=== PATIENT | male | born 1970 | race Caucasian/White ===

== ENCOUNTER 2017-08-31 06:35 | Observation (INO) | payer SELFPAY ==
[2017-08-31] VITALS (14 sets, daily range): BP systolic 126–215; BP diastolic 70–112; PULSE 52–71; RESP 15–20; TEMP 97.3–98.1; O2SAT 96–100
[~2017-08-31] VITALS: Ht 188 cm; Wt 98.5 kg
--- NOTE | 2017-08-31 07:01 | PD ---
HPI Chief Complaint: Hypertension Time Seen by Provider: 06:56 Travel History International Travel<30 days: No Contact w/Intl Traveler<30days: No Traveled to known affect area: No History of Present Illness HPI 47-year-old male complains of chest pressure starting about 4:30 AM, approximately 3 hours prior to ER arrival. He walked his dog is reported. He reports blood pressure home was approximately 190/120. He has a history of high blood pressure and took metoprolol for some time however stopped about 10 years ago. He has no family history coronary artery disease. He does not smoke. No history diabetes. He reports possible history of high cholesterol. Patient reports a very busy week working 12 hour days outdoors. He is also training and martial arts at night. He reports recovering from a cold last week.Pain is of moderate severity. Timing constant. No radiation. Location is midsternal in right upper chest wall. PFSH Past Medical History Hx Anticoagulant Therapy: No Autoimmune Disease: No Anxiety: Yes Depression: Yes Cancer: No Cardiovascular Problems: Yes Diminished Hearing: No Endocrine: No Gastrointestinal Disorders: Yes GERD: No Genitourinary: No Hiatal Hernia: No Hypertension: Yes Immune Disorder: No Implanted Vascular Access Dvce: No Musculoskeletal: No Neurologic: No Reproductive: No Respiratory: No Ulcer: No Tetanus Vaccination: > 5 Years Past Surgical History Surgical History: No Previous Surgery Other Surgery: No Social History Alcohol Use: Yes (6 every other day per patient ) Tobacco Use: No Substance Use: Yes (marijuana) Allergies-Medications (Allergen,Severity, Reaction): Coded Allergies: No Known Allergies (Verified , 10/25/15) Reported Meds & Prescriptions Reported Meds & Active Scripts Active No Active Prescriptions or Reported Medications Review of Systems Except as stated in HPI: all other systems reviewed are Neg General / Constitutional: No: Fever Physical Exam Narrative GENERAL: 47-year-old male pleasant well-nourished well-developed no acute distress Vital Signs Date Time Temp Pulse Resp B/P (MAP) Pulse Ox O2 Delivery O2 Flow Rate FiO2 08/31/17 07:36 58 18 158/85 (109) 99 Room Air 08/31/17 07:05 71 18 174/104 (127) 100 Room Air 08/31/17 07:03 100 Room Air 08/31/17 07:03 100 Room Air 08/31/17 06:50 58 20 184/105 (131) 100 Room Air 08/31/17 06:47 Room Air 08/31/17 06:40 97.3 55 16 215/112 (146) 100 SKIN: Warm and dry. HEAD: Atraumatic. Normocephalic. EYES: Pupils equal and round. No scleral icterus. No injection or drainage. ENT: No nasal bleeding or discharge. Mucous membranes pink and moist. NECK: Trachea midline. No JVD. CARDIOVASCULAR: Regular rate and rhythm. RESPIRATORY: No accessory muscle use. Clear to auscultation. Breath sounds equal bilaterally. GASTROINTESTINAL: Abdomen soft, non-tender, nondistended. Hepatic and splenic margins not palpable. MUSCULOSKELETAL: Extremities without clubbing, cyanosis, or edema. No obvious deformities. NEUROLOGICAL: Awake and alert. No obvious cranial nerve deficits. Motor grossly within normal limits. Five out of 5 muscle strength in the arms and legs. Normal speech. PSYCHIATRIC: Appropriate mood and affect; insight and judgment normal. Data Data Last Documented VS Vital Signs Date Time Temp Pulse Resp B/P (MAP) Pulse Ox O2 Delivery O2 Flow Rate FiO2 08/31/17 07:36 58 18 158/85 (109) 99 Room Air 08/31/17 06:40 97.3 Orders Orders Electrocardiogram (08/31/17 ) Complete Blood Count With Diff (08/31/17 06:50) Basic Metabolic Panel (Bmp) (08/31/17 06:50) Ckmb (Isoenzyme) Profile (08/31/17 06:50) Troponin I (08/31/17 06:50) Chest, Single Ap (08/31/17 06:50) Iv Access Insert/Monitor (08/31/17 06:50) Ecg Monitoring (08/31/17 06:50) Oxygen Administration (08/31/17 06:50) Oximetry (08/31/17 06:50) Nitroglycerin Sl (Nitrostat Sl) (08/31/17 07:15) CKMB (08/31/17 07:14) CKMB% (08/31/17 07:14) Admit Order (Ed Use Only) (08/31/17 ) Geothermal Electrical Engineer / Telemetry ANNE.Q8H (08/31/17 08:48) Vital Signs (Adult) Q4H (08/31/17 08:48) Diet Npo (08/31/17 Breakfast) Activity Bed Rest (08/31/17 08:48) Ns (Bolus) Inj (08/31/17 09:00) Labs Laboratory Tests Test 08/31/17 07:14 White Blood Count 6.4 TH/MM3 Red Blood Count 5.07 MIL/MM3 Hemoglobin 13.8 GM/DL Hematocrit 42.7 % Mean Corpuscular Volume 84.1 FL Mean Corpuscular Hemoglobin 27.1 PG Mean Corpuscular Hemoglobin Concent 32.2 % Red Cell Distribution Width 13.6 % Platelet Count 276 TH/MM3 Mean Platelet Volume 8.4 FL Neutrophils (%) (Auto) 69.1 % Lymphocytes (%) (Auto) 22.4 % Monocytes (%) (Auto) 6.0 % Eosinophils (%) (Auto) 2.0 % Basophils (%) (Auto) 0.5 % Neutrophils # (Auto) 4.5 TH/MM3 Lymphocytes # (Auto) 1.4 TH/MM3 Monocytes # (Auto) 0.4 TH/MM3 Eosinophils # (Auto) 0.1 TH/MM3 Basophils # (Auto) 0.0 TH/MM3 CBC Comment DIFF FINAL Differential Comment Blood Urea Nitrogen 11 MG/DL Creatinine 0.98 MG/DL Random Glucose 202 MG/DL Calcium Level 7.7 MG/DL Sodium Level 134 MEQ/L Potassium Level 3.7 MEQ/L Chloride Level 102 MEQ/L Carbon Dioxide Level 23.8 MEQ/L Anion Gap 8 MEQ/L Estimat Glomerular Filtration Rate 82 ML/MIN Total Creatine Kinase 442 U/L Creatine Kinase MB 6.5 NG/ML Creatine Kinase MB % 1.5 % Troponin I LESS THAN 0.02 NG/ML MDM Medical Decision Making Medical Screen Exam Complete: Yes Emergency Medical Condition: Yes Medical Record Reviewed: Yes Differential Diagnosis NSTEMI, unstable angina, coronary vasospasm, PE, PTX, aortic dissection, pericarditis, myocarditis, endocarditis, PNA, esophageal disease, aneurysm, musculoskeletal etiologies, anxiety, cocaine/sympathomimetic abuse Narrative Course CBC & BMP Diagram 08/31/17 07:14 Calcium Level 7.7 L Troponins less than 0.02 The patient has sinus bradycardia with a rate of 55 no skin injury pattern A chest x-ray reviewed is concerning for possible consolidation at the right lung base which is not keeping with expectations for today's visit. Overall the patient is considered next FOR the low-risk chest pain center. He was somewhat reluctant initially however agrees to stay. Case discussed with Dr Tam. Diagnosis Primary Impression: Chest pain Qualified Codes: R07.9 - Chest pain, unspecified Additional Impressions: Hypertension Qualified Codes: I10 - Essential (primary) hypertension Hyperglycemia Admitting Information Admitting Physician Requests: Observation Scripts No Active Prescriptions or Reported Meds Jeramy Castro MD August 31, 2017 07:01
--- NOTE | 2017-08-31 07:02 | RADRPT ---
EXAM DATE/TIME: 08/31/2017 06:51 [facility] COMPARISON: CHEST PA & LAT, October 25, 2015, 5:58. INDICATIONS : Chest pain MEDICAL HISTORY : None. SURGICAL HISTORY : None. ENCOUNTER: Initial ACUITY: 1 day PAIN SCORE: 1/10 LOCATION: Bilateral chest FINDINGS: There is minimal linear parenchymal opacity in the right lung base. Left lung is grossly clear. No ef fusion suspected. Cardiac contours are stable and satisfactory. CONCLUSION: Minimal right base parenchymal opacity. Vernon Dempsey MD on August 31, 2017 at 6:59 Board Certified Radiologist. This report was verified electronically.
[2017-08-31 07:19] LABS: AUTOMATED NEUTROPHIL # 4.5 TH/MM3 (1.8-7.7); BASOPHIL % 0.5 % (0.0-2.0); EOSINOPHIL # 0.1 TH/MM3 (0-0.4); HEMATOCRIT 42.7 % (39.0-51.0); HEMOGLOBIN 13.8 GM/DL (13.0-17.0); LYMPH % 22.4 % (9.0-44.0); LYMPHOCYTE # 1.4 TH/MM3 (1.0-4.8); MEAN CELL VOLUME 84.1 FL (80.0-100.0); MEAN CORPUSCULAR HEMOGLOBIN 27.1 PG (27.0-34.0); MEAN CORPUSCULAR HGB CONC 32.2 % (32.0-36.0); MEAN PLATELET VOLUME 8.4 FL (7.0-11.0); MONOCYTE # 0.4 TH/MM3 (0-0.9); NEUT % 69.1 % (16.0-70.0); PLATELET COUNT 276 TH/MM3 (150-450); RED BLOOD COUNT 5.07 MIL/MM3 (4.50-5.90); RED CELL DISTRIBUTION WIDTH 13.6 % (11.6-17.2); WHITE BLOOD COUNT 6.4 TH/MM3 (4.0-11.0)
[2017-08-31] MEDS: NITROGLYCERIN 0.4 MG SL 25 TABS/BTL SL SCH ×2 (07:20→07:25)
[2017-08-31 07:29] LABS: CHLORIDE 102 MEQ/L (98-107); SODIUM (NA) 134 MEQ/L (136-145)
[2017-08-31 07:32] LABS: BICARBONATE 23.8 MEQ/L (21.0-32.0); BLOOD UREA NITROGEN 11 MG/DL (7-18); CALCIUM 7.7 MG/DL (8.5-10.1); GLUCOSE,RANDOM 202 MG/DL (74-106)
[2017-08-31 07:35] LABS: CREATININE 0.98 MG/DL (0.60-1.30); GLOMERULAR FILTRATION RATE 82 ML/MIN (>89)
[2017-08-31 07:40] LABS: TROPONIN I LESS THAN 0.02 NG/ML (0.02-0.05)
[2017-08-31] MEDS ORDERED: SODIUM CHLOR 0.9% 1000 ML INJ 1,000 ML IV ONE ×2 (09:00→11:15)
[2017-08-31] MEDS ORDERED: NITROGLYCERIN 0.4 MG SL 25 TABS/BTL SL PRN (09:45)
[2017-08-31] MEDS ORDERED: ACETAMINOPHEN 500 MG CPLT PO PRN (09:45)
[2017-08-31] MEDS ORDERED: SODIUM CHLORIDE 0.9% FLUSH 10 ML FLUSH IV FLUSH PRN (09:45)
[2017-08-31] MEDS ORDERED: ONDANSETRON HCL 4 MG/2 ML VIAL IV PUSH PRN (09:45)
--- NOTE | 2017-08-31 09:47 | HHI.HP ---
HPI Service [facility] Primary Care Physician No Primary Care Physician Admission Diagnosis Chest Pain; Elevated Blood Glucose Diagnoses: (1) Chest pain (2) Hypertension (3) Hyperglycemia (4) Rhabdomyolysis Chief Complaint: Chest pressure Travel History International Travel<30 Days: No Contact w/Intl Traveler <30 Da: No Traveled to Known Affected Are: No History of Present Illness This is a pleasant 47-year-old male patient with a known medical history of hypertension, not on any blood pressure meds at home who presented to the ED via private vehicle for complaints of atypical chest pressure/neck pressure. Patient states that around 4:30 in the morning he was walking his dog when he developed a neck tightness. He went home, checked his blood pressure and it was roughly around 187/119. Patient does admit to a history of hypertension, was placed on Toprol in the past however stopped it roughly 10 years ago with lost to follow-up. Patient denies any associated nausea, vomiting, diaphoresis or shortness of breath with the pressure. He does admit to increasing stress in his life for the past several weeks, does admit to a extraneous work life. It should be noted that patient also had a 14 day bout of cough and congestion that ended last week, leaving his chest occasionally sore. Patient states he just has not been feeling himself lately. Denies any fevers, chills, abdominal pain, nausea, vomiting or dysuria. Does admit to occasional diarrhea. Denies any recent antibiotic use. Does not follow with the primary care doctor, patient is from [place]. Also states he is unaware of any hyperlipidemia. Patient is found to have an elevated CPK, states he was drinking last evening for the holiday and feels dehydrated. Initial troponin less than 0.02, second troponin 0 0.62. Will await third enzyme. All chest pressure and tightness has resolved. Dr. Mendoza spoke to on the phone, hospital housekeeper on-call, who is requesting to wait for third enzyme. EKGs showing normal sinus rhythm, controlled heart rate, nonspecific ST changes. Will continue to monitor. Review of Systems Constitutional: DENIES: Fever, Chills Eyes: DENIES: Blurred vision, Diplopia Respiratory: COMPLAINS OF: Cough, Sputum production, DENIES: Shortness of breath Cardiovascular: COMPLAINS OF: Chest pain, DENIES: Palpitations Gastrointestinal: COMPLAINS OF: Diarrhea, DENIES: Abdominal pain, Black stools , Bloody stools, Constipation, Nausea, Vomiting Musculoskeletal: DENIES: Joint pain Hematologic/lymphatic: DENIES: Bruising Immunologic/allergic: DENIES: Eczema Neurologic: DENIES: Abnormal gait Psychiatric: DENIES: Anxiety Except as stated in HPI: all other systems reviewed are Neg Past Family Social History Past Medical History Hypertension Anxiety and depression Past Surgical History Denies any prior surgery. Reported Medications Current Medications Medications (Trade) Dose Ordered Sig/Jaison Route Start Time Stop Time Status Last Admin (NS Flush) 2 ml UNSCH PRN IV FLUSH 08/31/17 09:45 (NS Flush) 2 ml BID IV FLUSH 08/31/17 21:00 (Tylenol) 500 mg Q4H PRN PO 08/31/17 09:45 (Zofran Inj) 4 mg Q6H PRN IV PUSH 08/31/17 09:45 (Nitrostat Sl) 0.4 mg Q5M PRN SL 08/31/17 09:45 Sodium Chloride 1,000 ml @ 100 mls/hr Q10H IV 08/31/17 11:15 Sodium Chloride 1,000 ml @ 999 mls/hr BOLUS ONCE IV 08/31/17 11:15 08/31/17 12:15 Allergies: Coded Allergies: No Known Allergies (Verified , 10/25/15) Active Ordered Medications Current Medications Medications (Trade) Dose Ordered Sig/Jaison Route Start Time Stop Time Status Last Admin (NS Flush) 2 ml UNSCH PRN IV FLUSH 08/31/17 09:45 (NS Flush) 2 ml BID IV FLUSH 08/31/17 21:00 (Tylenol) 500 mg Q4H PRN PO 08/31/17 09:45 (Zofran Inj) 4 mg Q6H PRN IV PUSH 08/31/17 09:45 (Nitrostat Sl) 0.4 mg Q5M PRN SL 08/31/17 09:45 Sodium Chloride 1,000 ml @ 100 mls/hr Q10H IV 08/31/17 11:15 Sodium Chloride 1,000 ml @ 999 mls/hr BOLUS ONCE IV 08/31/17 11:15 08/31/17 12:15 Family History Denies any family medical historyl Social History Denies any tobacco abuse. Denies any illicit drug use. Admits to drinking alcohol every other day. Physical Exam Vital Signs Vital Signs Date Time Temp Pulse Resp B/P (MAP) Pulse Ox O2 Delivery O2 Flow Rate FiO2 08/31/17 09:40 08/31/17 08:40 58 18 149/95 (113) 98 Room Air 08/31/17 07:36 58 18 158/85 (109) 99 Room Air 08/31/17 07:05 71 18 174/104 (127) 100 Room Air 08/31/17 07:03 100 Room Air 08/31/17 07:03 100 Room Air 08/31/17 06:50 58 20 184/105 (131) 100 Room Air 08/31/17 06:47 Room Air 08/31/17 06:40 97.3 55 16 215/112 (146) 100 Physical Exam GENERAL: Well-developed, well-nourished patient in [facility]. SKIN: Warm and dry. No rash. HEAD: Normocephalic. Atraumatic. EYES: Pupils equal and round. No scleral icterus. No injection or drainage. ENT: No nasal bleeding or discharge. Mucous membranes pink and moist. NECK: Supple. Trachea midline. CARDIOVASCULAR: Regular rate and rhythm. S1, S2 noted. No murmur appreciated. No chest pain to palpation RESPIRATORY: No accessory muscle use. Clear to auscultation. Breath sounds equal bilaterally. GASTROINTESTINAL: Abdomen soft, non-tender, nondistended. Normoactive bowel sounds x4. MUSCULOSKELETAL: No obvious deformities. Extremities without clubbing, cyanosis , or edema. NEUROLOGICAL: Awake and alert. No obvious cranial nerve deficits. Motor grossly within normal limits. 5/5 muscle strength in bilateral upper and lower extremities. Normal speech. PSYCHIATRIC: Appropriate mood and affect; insight and judgment normal. Laboratory Laboratory Tests Test 08/31/17 07:14 White Blood Count 6.4 Red Blood Count 5.07 Hemoglobin 13.8 Hematocrit 42.7 Mean Corpuscular Volume 84.1 Mean Corpuscular Hemoglobin 27.1 Mean Corpuscular Hemoglobin Concent 32.2 Red Cell Distribution Width 13.6 Platelet Count 276 Mean Platelet Volume 8.4 Neutrophils (%) (Auto) 69.1 Lymphocytes (%) (Auto) 22.4 Monocytes (%) (Auto) 6.0 Eosinophils (%) (Auto) 2.0 Basophils (%) (Auto) 0.5 Neutrophils # (Auto) 4.5 Lymphocytes # (Auto) 1.4 Monocytes # (Auto) 0.4 Eosinophils # (Auto) 0.1 Basophils # (Auto) 0.0 CBC Comment DIFF FINAL Differential Comment Blood Urea Nitrogen 11 Creatinine 0.98 Random Glucose 202 Calcium Level 7.7 Sodium Level 134 Potassium Level 3.7 Chloride Level 102 Carbon Dioxide Level 23.8 Anion Gap 8 Estimat Glomerular Filtration Rate 82 Total Creatine Kinase 442 Creatine Kinase MB 6.5 Creatine Kinase MB % 1.5 Troponin I LESS THAN 0.02 Result Diagram: 08/31/17 0714 08/31/17 0714 Imaging Last Impressions Chest X-Ray 08/31/17 0650 Signed Impressions: Service Date/Time: Thursday, August 31, 2017 06:51 - CONCLUSION: Minimal right base parenchymal opacity. Vernon Dempsey MD Septic Shock Reassessment Septic shock perfusion: reassessment completed Caprini VTE Risk Assessment Caprini VTE Risk Assessment: No/Low Risk (score <= 1) Caprini Risk Assessment Model Point Value = 1 Point Value = 2 Point Value = 3 Point Value = 5 Age 41-60 Minor surgery BMI > 25 kg/m2 Swollen legs Varicose veins or History of unexplained or recurrent spontaneous Oral contraceptives or hormone replacement Sepsis (< 1 month) Serious lung disease, including pneumonia (< 1 month) Abnormal pulmonary function Acute myocardial infarction Congestive heart failure (< 1 month) History of inflammatory bowel disease Medical patient at bed rest Age 61-74 Arthroscopic surgery Major open surgery (> 45 min) Laparoscopic surgery (> 45 min) Malignancy Confined to bed (> 72 hours) Immobilizing plaster cast Central venous access Age >= 75 History of VTE Family history of VTE Factor V Leiden Prothrombin [id number] Lupus anticoagulant Anticardiolipin antibodies Elevated serum homocysteine Heparin-induced thrombocytopenia Other congenital or acquired thrombophilia Stroke (< 1 month) Elective arthroplasty Hip, pelvis, or leg fracture Acute spinal cord injury (< 1 month) Prophylaxis Regimen Total Risk Factor Score Risk Level Prophylaxis Regimen 0-1 Low Early ambulation 2 Moderate Order ONE of the following: *Sequential Compression Device (SCD) *Heparin 5000 units SQ BID 3-4 Higher Order ONE of the following medications: *Heparin 5000 units SQ TID *Enoxaparin/Lovenox 40 mg SQ daily (WT < 150 kg, CrCl > 30 mL/min) *Enoxaparin/Lovenox 30 mg SQ daily (WT < 150 kg, CrCl > 10-29 mL/min) *Enoxaparin/Lovenox 30 mg SQ BID (WT < 150 kg, CrCl > 30 mL/min) AND/OR *Sequential Compression Device (SCD) 5 or more Highest Order ONE of the following medications: *Heparin 5000 units SQ TID (Preferred with Epidurals) *Enoxaparin/Lovenox 40 mg SQ daily (WT < 150 kg, CrCl > 30 mL/min) *Enoxaparin/Lovenox 30 mg SQ daily (WT < 150 kg, CrCl > 10-29 mL/min) *Enoxaparin/Lovenox 30 mg SQ BID (WT < 150 kg, CrCl > 30 mL/min) AND *Sequential Compression Device (SCD) Assessment and Plan Problem List: (1) Chest pain ICD Code: R07.9 - Chest pain, unspecified Status: Acute Plan: Patient has been admitted to the chest pain center for observation. Serial EKGs and serial troponins have been ordered for ruling out ACS purposes. Initial troponin flat. Second troponin bumped to 0.62. Await third enzyme. Spoke to Dr. Mendoza, hospital housekeeper on-call, who was updated about patient's presentation will await third enzyme. EKG reviewed showing sinus bradycardia, controlled heart rate, no ST changes to indicate ischemia. Nonspecific ST changes seen. Chest pain has resolved. CBC reviewed essentially unremarkable. Blood pressure has improved. Further hospitalization and treatment plan will depend on serial enzymes. Continue to monitor. (2) Hypertension ICD Code: I10 - Essential (primary) hypertension Status: Acute Plan: Significantly elevated BP on presentation. 215/112, now decreased. Not on any medications at home. Trend BPs. Lisinopril added. Patient is bradycardic , will hold betablocker for now. Aspirin given. Nitroglycerin as needed. Continue to monitor. service developer hospital housekeeper called and updated, will await third enzyme. Chest pain has resolved. (3) Rhabdomyolysis ICD Code: M62.82 - Rhabdomyolysis Status: Acute Plan: CPK elevated 442/CKMB 6.5. Trend. Was given 1 L NS bolus in ED. Will add another liter. Start IVF. Renal function WNL. (4) Hyperglycemia ICD Code: R73.9 - Hyperglycemia, unspecified Status: Acute Plan: Random glucose 202. No history of DM. Hemoglobin a1C pending. Follow. (5) Respiratory infection, upper ICD Code: J06.9 - Acute upper respiratory infection, unspecified Plan: Patient admits to a 14 day productive cough and congestion, chest x-ray showing minimal right lower lobe parenchymal opacity. Z-Driss ordered. DVT prophylaxis: SCDs. Problem Qualifiers (1) Chest pain: Qualified Codes: R07.9 - Chest pain, unspecified (2) Hypertension: Qualified Codes: I10 - Essential (primary) hypertension Lakia Hale August 31, 2017 09:47
[2017-08-31 11:09] LABS: TROPONIN I 0.62 NG/ML (0.02-0.05)
[2017-08-31] MEDS: SODIUM CHLOR 0.9% 1000 ML INJ 1,000 ML IV SCH ×2 (11:32→21:22)
[2017-08-31] MEDS: LISINOPRIL 10 MG TAB PO SCH (11:51)
[2017-08-31] MEDS: ASPIRIN 325 MG TAB PO SCH (11:51)
[2017-08-31] MEDS ORDERED: AZITHROMYCIN 250 MG TAB PO ONE (12:00)
[2017-08-31 13:46] LABS: HEMOGLOBIN A1C 5.6 % (4.3-6.0)
[2017-08-31 13:48] LABS: CHOLESTEROL 254 MG/DL (120-200)
[2017-08-31 13:50] LABS: HDL CHOLESTEROL 55.2 MG/DL (40.0-60.0); LDL CHOLESTEROL 159 MG/DL (0-99); TRIGLYCERIDES 197 MG/DL (42-150)
[2017-08-31 14:23] LABS: TROPONIN I 1.58 NG/ML (0.02-0.05)
[2017-08-31] MEDS ORDERED: HEPARIN-D5W 25,000 U/250 ML 250 ML IV PRN (14:30)
[2017-08-31 15:02] LABS: PROTHROMBIN TIME - PATIENT 9.7 SEC (9.8-11.6)
[2017-08-31 15:12] LABS: BILIRUBIN, URINE NEG (NEG); BLOOD, URINE NEG (NEG); GLUCOSE,URINE NEG (NEG); KETONE, URINE NEG (NEG); NITRITE,URINE NEG (NEG); PH, URINE 5.5 (5.0-8.5); URINE LEUKOCYTE ESTERASE NEG (NEG)
[2017-08-31 15:35] LABS: URINE COLOR STRAW (YELLW/STRAW)
[2017-08-31 15:36] LABS: SQUAMOUS EPITHELIAL CELL URINE 0-1 /hpf (0-5)
--- NOTE | 2017-08-31 16:18 | MB ---
cc: David Brown MD DATE: 08/31/2017 REASON FOR CONSULTATION: Elevated troponin. HISTORY OF PRESENT ILLNESS: This is a pleasant 47-year-old gentleman with history of hypertension but no known coronary history, who presented with the sensation of having high blood pressure. He has had this sensation in the past, which he describes as neck pressure and fullness. He asked his girlfriend to take his blood pressure and apparently it was very elevated, over 180. He was seen in the emergency department where his initial blood pressure was 215/112. This has since come down reasonably. His cardiac enzymes became positive and thus I was consulted. The patient denies any current chest pain, though he says he recently had a severe flu and he had some pleuritic discomfort at that time. 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 Additionally, he says he is quite active in martial arts and has not had any exertional chest discomfort. PAST MEDICAL HISTORY: Hypertension, cannabis "vaping", prior tobacco abuse, anxiety and depression. CURRENT MEDICATIONS: 1. Zithromax. 2. IV heparin. 3. Aspirin 325 mg a day. 4. Lisinopril 10 mg daily. ALLERGIES: NO KNOWN DRUG ALLERGIES. PHYSICAL EXAMINATION: VITAL SIGNS: Afebrile, pulse 52, respiratory rate 16, blood pressure 156/88, satting 96 on 2 liters. GENERAL: Pleasant gentleman in no distress. NECK: No JVD. LUNGS: Clear to auscultation bilaterally. HEART: Regular rate and rhythm. No murmurs appreciated. ABDOMEN: Benign. EXTREMITIES: No edema. LABORATORY DATA: White count 6.4, hematocrit 42.7, platelets 276. Sodium 134, potassium 3.7, chloride 102, bicarbonate 23.8, BUN 11, creatinine 0.9 and glucose 202. Troponin was less than 0.02, 0.62, 1.58. CK and CK-MBs are positive though CK-MB percentage is normal. Toxicology was positive for cannabis. DIAGNOSTIC STUDIES: Chest x-ray showed minimal parenchymal opacity at the right base. EKG shows sinus bradycardia with no significant ST or T-wave changes. IMPRESSION AND RECOMMENDATIONS: Elevated troponin. The patient's elevated troponin is most likely due to his severe hypertension. His symptoms are pretty atypical for acute coronary syndrome, particularly given his very strenuous job and extracurricular activities which result in no chest discomfort symptoms. However, acute coronary syndrome obviously cannot be totally excluded and given the somewhat higher troponin than we usually see and hypertension alone, I did offer a cardiac catheterization. He declined this procedure now and wishes for an alternative noninvasive study to be done instead. I have elected for a coronary CT which will be done tomorrow. If this test is positive, the patient will reconsider whether or not he would like to undergo a heart catheterization. Further recommendations based on his coronary CT. Thank you again for the opportunity to participate in this patient's care. MD FRANDY James/HILARY , 03:59 PM , 04:18 PM
[2017-08-31] MEDS: SODIUM CHLORIDE 0.9% FLUSH 10 ML FLUSH IV FLUSH SCH (21:00)
[2017-09-01 02:04] VITALS: BP 136/88; PULSE 52; RESP 20; TEMP 98; O2SAT 97
[2017-09-01] MEDS: SODIUM CHLOR 0.9% 1000 ML INJ 1,000 ML IV SCH (07:42)
[2017-09-01 08:00] VITALS: BP 136/86; PULSE 54; RESP 16; TEMP 98.7; O2SAT 100
[2017-09-01] MEDS: SODIUM CHLORIDE 0.9% FLUSH 10 ML FLUSH IV FLUSH SCH (08:54)
[2017-09-01] MEDS: ASPIRIN 325 MG TAB PO SCH (09:00)
[2017-09-01] MEDS ORDERED: AZITHROMYCIN 250 MG TAB PO SCH (09:00)
--- NOTE | 2017-09-01 09:51 | HHI.PR ---
Subjective Remarks Follow up chest pain and elevated troponin. Patient seen and examined, girlfriend at bedside. No acute events overnight. No complaints of chest pain. BP more controlled. Trops elevated. Barrel Cap Setter following, plan for [facility] Patient will be transferred. On Heparin drip, continue. Vitals are stable. Afebrile. Objective Vitals Vital Signs Date Time Temp Pulse Resp B/P (MAP) Pulse Ox O2 Delivery O2 Flow Rate FiO2 09/01/17 08:00 98.7 54 16 136/86 (103) 100 09/01/17 02:04 98.0 52 20 136/88 (104) 97 08/31/17 23:00 53 08/31/17 22:00 99 21 08/31/17 21:38 98.1 54 20 126/74 (91) 98 08/31/17 16:00 98.0 57 16 133/70 (91) 97 08/31/17 15:00 56 08/31/17 12:56 96 21 08/31/17 12:00 97.7 52 16 156/88 (110) 99 I/O 08/31/17 08/31/17 08/31/17 09/01/17 09/01/17 09/01/17 07:00 15:00 23:00 07:00 15:00 23:00 Intake Total 500 ml 720 ml Balance 500 ml 720 ml Intake Oral 720 ml IV Total 500 ml # Voids 3 1 # Bowel Movements 2 Result Diagram: 08/31/17 0714 08/31/17 0714 Imaging Last Impressions Chest X-Ray 08/31/17 0650 Signed Impressions: Service Date/Time: Thursday, August 31, 2017 06:51 - CONCLUSION: Minimal right base parenchymal opacity. Vernon Dempsey MD Objective Remarks GENERAL: Well-developed, well-nourished patient in NAD. No cp. On RA comfortably. SKIN: Warm and dry. No rash. HEAD: Normocephalic. Atraumatic. EYES: Pupils equal and round. No scleral icterus. No injection or drainage. ENT: No nasal bleeding or discharge. Mucous membranes pink and moist. NECK: Supple. Trachea midline. CARDIOVASCULAR: Regular rate and rhythm. S1, S2 noted. No murmur appreciated. No chest pain to palpation. RESPIRATORY: No accessory muscle use. Clear to auscultation. Breath sounds equal bilaterally. GASTROINTESTINAL: Abdomen soft, non-tender, nondistended. Normoactive bowel sounds x4. MUSCULOSKELETAL: No obvious deformities. Extremities without clubbing, cyanosis , or edema. NEUROLOGICAL: Awake and alert. No obvious cranial nerve deficits. Motor grossly within normal limits. 5/5 muscle strength in bilateral upper and lower extremities. Normal speech. PSYCHIATRIC: Appropriate mood and affect; insight and judgment normal. A/P Problem List: (1) Chest pain ICD Code: R07.9 - Chest pain, unspecified Status: Acute Plan: Patient has been admitted to the chest pain center for observation. Serial EKGs and serial troponins have been ordered for ruling out ACS purposes. Troponin elevated. Spoke to Dr. Mendoza, division engineer on-call, is following patient. Recommendations for cardiac cath but patient is refusing. CT angiogram is ordered for today. [facility]. Heparin gtt continued. EKG reviewed showing sinus bradycardia, controlled heart rate, no ST changes to indicate ischemia. Nonspecific ST changes seen. Chest pain has resolved. CBC reviewed essentially unremarkable. Blood pressure has improved. Lipids elevated, started on Atorvastatin. Further hospitalization and treatment plan will depend on CT angiogram results. Continue to monitor. (2) Hypertension ICD Code: I10 - Essential (primary) hypertension Status: Acute Plan: Significantly elevated BP on presentation. 215/112, now WNL. Not on any medications at home. Trend BPs. Lisinopril added. Patient is bradycardic, will hold beta-hector for now. Aspirin given. Nitroglycerin as needed. Continue to monitor BP trends. (3) Rhabdomyolysis ICD Code: M62.82 - Rhabdomyolysis Status: Acute Plan: CPK elevated 442/CKMB 6.5 on presentation. Continue to trend, trending down. Was given 1 L NS bolus in ED. Added an additional liter. Continue IVF. Renal function WNL. Continue to monitor. (4) Hyperglycemia ICD Code: R73.9 - Hyperglycemia, unspecified Status: Acute Plan: Random glucose 202. No history of DM. Hemoglobin a1C 5.6. (5) Respiratory infection, upper ICD Code: J06.9 - Acute upper respiratory infection, unspecified Plan: Patient admits to a 14 day productive cough and congestion, chest x-ray showing minimal right lower lobe parenchymal opacity. Z-Driss ordered. Will monitor, comfortable on RA. DVT prophylaxis: SCDs. Problem Qualifiers (1) Chest pain: Qualified Codes: R07.9 - Chest pain, unspecified (2) Hypertension: Qualified Codes: I10 - Essential (primary) hypertension Lakia Hale September 01, 2017 09:50
[2017-09-01] MEDS: LISINOPRIL 10 MG TAB PO SCH (09:54)
[2017-09-01 10:15] VITALS: O2SAT 97
[2017-09-01 12:50] VITALS: BP 135/79; PULSE 50; RESP 16; TEMP 97.3; O2SAT 100
[2017-09-01] MEDS ORDERED: ATOR40TA16 PO (15:30)
[2017-09-01] MEDS ORDERED: LISI10TA3 PO (15:30)
--- NOTE | 2017-09-01 16:15 | EKG ---
Date Performed: 08/31/2017 Time Performed: 07:02:10 PTAGE: 47 years EKG: SINUS BRADYCARDIA BORDERLINE ECG PREVIOUS TRACING : 10/25/2015 05.28 Since previous tracing, no significant change noted DOCTOR: Sebastian Glover Interpretating Date/Time 09/01/2017 16:13:32
--- NOTE | 2017-09-01 16:15 | EKG ---
Date Performed: 08/31/2017 Time Performed: 10:19:37 PTAGE: 47 years EKG: SINUS BRADYCARDIA BORDERLINE ECG PREVIOUS TRACING : 08/31/2017 07.02 Since previous tracing, no significant change noted DOCTOR: Sebastian Glover Interpretating Date/Time 09/01/2017 16:13:43
--- NOTE | 2017-09-01 16:16 | EKG ---
Date Performed: 08/31/2017 Time Performed: 13:27:13 PTAGE: 47 years EKG: SINUS BRADYCARDIA BORDERLINE ECG PREVIOUS TRACING : 08/31/2017 10.19 Since previous tracing, no significant change noted DOCTOR: Sebastian Glover Interpretating Date/Time 09/01/2017 16:14:41
[2017-09-01] MEDS ORDERED: ATORVASTATIN 40 MG TAB PO SCH (21:00)
== END 2017-09-01 15:34 | disposition left against medical advice (07) ==
LOC: PHED 06:35 → PHEDA 08:49 → PH3A 09:36
PROVIDERS: ADMIT Hospitalist; ATTEND Hospitalist
DX: R07.9 Chest pain, unspecified (principal); I10 Essential (primary) hypertension; M62.82 Rhabdomyolysis; J06.9 Acute upper respiratory infection, unspecified; E86.0 Dehydration; R73.9 Hyperglycemia, unspecified; R94.31 Abnormal electrocardiogram [ECG] [EKG]; Z87.891 Personal history of nicotine dependence
CPT/HCPCS: 71045; 80048; 80061; 80307; 81001; 82550; 82552; 83036; 84484; 85025; 85610; 85730; 93005; 96361; 96365; 99285; G0378; J1644; J7030

== ENCOUNTER 2017-09-12 18:59 | Emergency (ER) | END 2017-09-12 22:15 | disposition home or self-care (01) | DX: I10 Essential (primary) hypertension (principal); F12.90 Cannabis use, unspecified, uncomplicated; Z91.14 Patient's other noncompliance with medication regimen ==

== ENCOUNTER 2017-09-17 23:03 | Inpatient (IN) | payer SELFPAY ==
[~2017-09-17] VITALS: Ht 188 cm; Wt 95.0 kg
[~2017-09-17 23:03] MED LIST: ATOR40TA16 PO; LISI10TA3 PO; OMEP20TA93 PO
[2017-09-17 23:13] VITALS: BP 178/105; PULSE 69; RESP 16; TEMP 97.9; O2SAT 100
--- NOTE | 2017-09-17 23:17 | PD ---
HPI Chief Complaint: Chest Pain Time Seen by Provider: 23:17 Travel History International Travel<30 days: No Contact w/Intl Traveler<30days: No Traveled to known affect area: No History of Present Illness HPI 47-year-old male came to the emergency with history of substernal chest pressure that started this evening. No radiation of the pain. No aggravating or relieving factors identified. Patient says that he was admitted in this hospital about 2 weeks ago for similar complaint and was planned to be transferred to the main hospital but he left AMA since he had to get to work. Patient has history of high blood pressure and at home today noticed that his blood pressure was high. He took one extra dose of his lisinopril but when the pain did not get better he decided to come to the emergency room. Patient is a smoker. He has not had any cardiac workup or any telephone collector. PFSH Past Medical History Narrative Medical List of his past medical, surgical, social and family history reviewed from the nursing note. Hx Anticoagulant Therapy: No Autoimmune Disease: No Anxiety: Yes Depression: Yes Cancer: No Cardiovascular Problems: Yes (HTN) Diminished Hearing: No Endocrine: No Gastrointestinal Disorders: Yes GERD: No Genitourinary: No Hiatal Hernia: No Hypertension: Yes Immune Disorder: No Implanted Vascular Access Dvce: No Musculoskeletal: No Neurologic: No Reproductive: No Respiratory: No Ulcer: No Past Surgical History Other Surgery: No Social History Alcohol Use: Yes (6 every other day per patient ) Tobacco Use: No Substance Use: Yes (Marijuana) Allergies-Medications (Allergen,Severity, Reaction): Coded Allergies: No Known Allergies (Verified , 10/25/15) Comments No known drug allergies. Reported Meds & Prescriptions Reported Meds & Active Scripts Active Reported Omeprazole 20 Mg Tab 20 Mg PO DAILY Narrative Medication List of his home medications reviewed from the nursing note. Review of Systems Except as stated in HPI: all other systems reviewed are Neg Cardiovascular: Positive: Chest Pain or Discomfort Physical Exam Narrative GENERAL: Awake, alert, anxious, moderate distress SKIN: Focused skin assessment warm/dry. HEAD: Atraumatic. Normocephalic. EYES: Pupils equal and round. No scleral icterus. No injection or drainage. ENT: No nasal bleeding or discharge. Mucous membranes pink and moist. NECK: Trachea midline. No JVD. CARDIOVASCULAR: Regular rate and rhythm. No murmur appreciated. RESPIRATORY: No accessory muscle use. Clear to auscultation. Breath sounds equal bilaterally. GASTROINTESTINAL: Abdomen soft, non-tender, nondistended. Hepatic and splenic margins not palpable. MUSCULOSKELETAL: No obvious deformities. No clubbing. No cyanosis. No edema. NEUROLOGICAL: Awake and alert. No obvious cranial nerve deficits. Motor grossly within normal limits. Normal speech. PSYCHIATRIC: Appropriate mood and affect; insight and judgment normal. Data Data Last Documented VS Vital Signs Date Time Temp Pulse Resp B/P (MAP) Pulse Ox O2 Delivery O2 Flow Rate FiO2 09/17/17 23:56 65 16 136/87 (103) 98 Nasal Cannula 2.00 09/17/17 23:13 97.9 Orders Orders Electrocardiogram (09/17/17 23:15) Complete Blood Count With Diff (09/17/17 23:15) Basic Metabolic Panel (Bmp) (09/17/17 23:15) Ckmb (Isoenzyme) Profile (09/17/17 23:15) Troponin I (09/17/17 23:15) Chest, Single Ap (09/17/17 23:15) Aspirin Chew (Aspirin Chew) (09/18/17 09:00) Nitroglycerin Sl (Nitrostat Sl) (09/17/17 23:30) Aspirin Chew (Aspirin Chew) (09/17/17 23:31) CKMB (09/17/17 23:15) CKMB% (09/17/17 23:15) Potassium Chloride Eff (K-Lyte Cl Eff) (09/18/17 00:00) Admit Order (Ed Use Only) (09/18/17 00:00) Place In Observation (09/17/17 ) Vital Signs (Adult) Q4H (09/17/17 23:58) Spar Machine Operator / Telemetry .CONTINUOUS (09/17/17 23:58) Sodium Chloride 0.9% Flush (Ns Flush) (09/18/17 00:00) Sodium Chloride 0.9% Flush (Ns Flush) (09/18/17 09:00) Acetaminophen (Tylenol) (09/18/17 00:00) Troponin I (09/18/17 05:58) Electrocardiogram (09/17/17 23:58) Electrocardiogram (09/18/17 05:58) Resp Oxygen Elpidio C Titrat 1-4 L (09/17/17 ) Scd Bilateral/Knee High ANNE.BID (09/17/17 23:58) Naloxone Inj (Narcan Inj) (09/18/17 00:00) Magnesium Hydroxide Liq (Milk Of Magnesi (09/18/17 00:00) Sennosides (Senokot) (09/18/17 00:00) Bisacodyl Supp (Dulcolax Supp) (09/18/17 00:00) Lactulose Liq (Lactulose Liq) (09/18/17 00:00) Labs Laboratory Tests Test 09/17/17 23:15 White Blood Count 10.9 TH/MM3 Red Blood Count 5.06 MIL/MM3 Hemoglobin 13.8 GM/DL Hematocrit 42.5 % Mean Corpuscular Volume 84.0 FL Mean Corpuscular Hemoglobin 27.2 PG Mean Corpuscular Hemoglobin Concent 32.4 % Red Cell Distribution Width 13.3 % Platelet Count 292 TH/MM3 Mean Platelet Volume 8.3 FL Neutrophils (%) (Auto) 60.6 % Lymphocytes (%) (Auto) 30.0 % Monocytes (%) (Auto) 5.9 % Eosinophils (%) (Auto) 1.5 % Basophils (%) (Auto) 2.0 % Neutrophils # (Auto) 6.6 TH/MM3 Lymphocytes # (Auto) 3.3 TH/MM3 Monocytes # (Auto) 0.6 TH/MM3 Eosinophils # (Auto) 0.2 TH/MM3 Basophils # (Auto) 0.2 TH/MM3 CBC Comment DIFF FINAL Differential Comment Blood Urea Nitrogen 14 MG/DL Creatinine 1.00 MG/DL Random Glucose 113 MG/DL Calcium Level 8.2 MG/DL Sodium Level 133 MEQ/L Potassium Level 3.2 MEQ/L Chloride Level 99 MEQ/L Carbon Dioxide Level 24.1 MEQ/L Anion Gap 10 MEQ/L Estimat Glomerular Filtration Rate 80 ML/MIN Total Creatine Kinase 265 U/L Creatine Kinase MB 4.1 NG/ML Troponin I LESS THAN 0.02 NG/ML MDM Medical Decision Making Medical Screen Exam Complete: Yes Emergency Medical Condition: Yes Medical Record Reviewed: Yes Interpretation(s) Twelve-lead EKG was reviewed by me. Normal sinus rhythm, normal axis, nonspecific ST-T wave changes. Heart rate of 64 bpm. Differential Diagnosis ACS, non-STEMI Narrative Course 11:59 PM blood test results are back. Troponin is negative. I spoke with the hospitalist. He wants to keep the patient in [place] for now and trend the troponin. If it starts to rise then patient will be transferred to the main hospital. His potassium was low. He was given potassium orally for replacement. Procedures EKG Prior to Arrival: No Diagnosis Primary Impression: Chest pain Qualified Codes: R07.9 - Chest pain, unspecified Additional Impression: Hypertension Qualified Codes: I10 - Essential (primary) hypertension Admitting Information Admitting Physician Requests: Observation Scripts Ranitidine (Zantac) 150 Mg Tab 150 MG PO BID for Reduce Stomach Acid, #60 TAB 0 Refills Prov: Elana Lopez MD 09/19/17 Clopidogrel (Plavix) 75 Mg Tab 75 MG PO DAILY for Blood Clot Prevention for 90 Days, #90 TAB 0 Refills Prov: Elana Lopez MD 09/19/17 Aspirin (Tgt Aspirin) 81 Mg Chw 162 MG PO DAILY for CAD for 30 Days, EA 11 Refills Prov: Elana Lopez MD 09/19/17 Lisinopril (Lisinopril) 5 Mg Tab 2.5 MG PO DAILY for CAD for 30 Days, #15 TAB Prov: Elana Lopez MD 09/19/17 Metoprolol Tartrate (Metoprolol Tartrate) 25 Mg Tab 12.5 MG PO Q12HR for CAD for 30 Days, TAB 3 Refills Prov: Elana Lopez MD 09/19/17 Atorvastatin (Atorvastatin) 80 Mg Tab 80 MG PO HS for CAD for 30 Days, TAB 6 Refills Prov: Elana Lopez MD 09/19/17 Krissy Ramos MD September 17, 2017 23:17
[2017-09-17 23:23] VITALS: BP 173/97
[2017-09-17] MEDS ORDERED: NITROGLYCERIN 0.4 MG SL 25 TABS/BTL SL ONE (23:30)
[2017-09-17] MEDS ORDERED: ASPIRIN 81 MG CHEW TAB ONE (23:31)
[2017-09-17] MEDS: ASPIRIN 81 MG CHEW TAB CHEW SCH (23:34)
[2017-09-17 23:39] VITALS: BP 148/89; PULSE 81; RESP 16; O2SAT 98
[2017-09-17 23:39] LABS: CHLORIDE 99 MEQ/L (98-107); SODIUM (NA) 133 MEQ/L (136-145)
[2017-09-17 23:41] LABS: CALCIUM 8.2 MG/DL (8.5-10.1)
[2017-09-17 23:42] LABS: AUTOMATED NEUTROPHIL # 6.6 TH/MM3 (1.8-7.7); BASOPHIL # 0.2 TH/MM3 (0-0.2); BICARBONATE 24.1 MEQ/L (21.0-32.0); BLOOD UREA NITROGEN 14 MG/DL (7-18); EOSINOPHIL # 0.2 TH/MM3 (0-0.4); EOSINOPHIL % 1.5 % (0.0-4.0); GLUCOSE,RANDOM 113 MG/DL (74-106); HEMATOCRIT 42.5 % (39.0-51.0); HEMOGLOBIN 13.8 GM/DL (13.0-17.0); LYMPHOCYTE # 3.3 TH/MM3 (1.0-4.8); MEAN CORPUSCULAR HEMOGLOBIN 27.2 PG (27.0-34.0); MEAN CORPUSCULAR HGB CONC 32.4 % (32.0-36.0); MEAN PLATELET VOLUME 8.3 FL (7.0-11.0); MONO % 5.9 % (0.0-8.0); MONOCYTE # 0.6 TH/MM3 (0-0.9); NEUT % 60.6 % (16.0-70.0); PLATELET COUNT 292 TH/MM3 (150-450); RED BLOOD COUNT 5.06 MIL/MM3 (4.50-5.90); RED CELL DISTRIBUTION WIDTH 13.3 % (11.6-17.2); WHITE BLOOD COUNT 10.9 TH/MM3 (4.0-11.0)
[2017-09-17 23:45] LABS: GLOMERULAR FILTRATION RATE 80 ML/MIN (>89)
--- NOTE | 2017-09-17 23:49 | RADRPT ---
EXAM DATE: 09/17/2017 11:45 PM EDT AGE/SEX: 47 years / Male INDICATIONS: Bilateral chest pain starting today CLINICAL DATA: This is the patient's initial encounter. Patient reports that signs and symptoms have been present for 1 day and indicates a pain score of 4/10. MEDICAL/SURGICAL HISTORY: Hypertension. None. COMPARISON: [facility], CHEST SINGLE AP, 08/31/2017. . FINDINGS: A single AP view of the chest demonstrates the lungs to be symmetrically aerated without evidence of mass, infiltrate or effusion. The cardiomediastinal contours are unremarkable. Osseous structures a re intact. CONCLUSION: No acute cardiopulmonary disease. Electronically signed by: Jorge Gutierrez MD 09/17/2017 11:47 PM EDT
[2017-09-17 23:50] LABS: TROPONIN I LESS THAN 0.02 NG/ML (0.02-0.05)
[2017-09-17 23:56] VITALS: BP 136/87; PULSE 65; RESP 16; O2SAT 98
[2017-09-18] VITALS (16 sets, daily range): BP systolic 124–142; BP diastolic 67–89; PULSE 50–68; RESP 14–20; TEMP 96.8–98.1; O2SAT 95–99
[2017-09-18] MEDS ORDERED: ACETAMINOPHEN 325 MG TAB PO PRN
[2017-09-18] MEDS ORDERED: LACTULOSE SYRUP 20 GM/30 ML CUP PO PRN
[2017-09-18] MEDS ORDERED: NALOXONE HCL 0.4 MG/ML AMP IV PUSH PRN
[2017-09-18] MEDS ORDERED: POTASSIUM CHLORIDE 25 MEQ EFFERVESCENT TAB PO ONE
[2017-09-18] MEDS ORDERED: SENNOSIDES 8.6 MG TAB PO PRN
[2017-09-18] MEDS ORDERED: BISACODYL 10 MG SUPP RECTAL PRN
[2017-09-18] MEDS ORDERED: MAGNESIUM HYDROXIDE SUSP 30 ML CUP PO PRN
--- NOTE | 2017-09-18 07:46 | HHI.HP ---
[facility] No Primary Care Physician Admission Diagnosis Chest pain, rule out ACS Diagnoses: (1) Non-ST elevated myocardial infarction Diagnosis: Principal (2) Chest pain Diagnosis: Principal Chief Complaint: Chest pain Travel History International Travel<30 Days: No Contact w/Intl Traveler <30 Da: No Traveled to Known Affected Are: No History of Present Illness 47-year-old male with known history of hypertension, hyperlipidemia, gastroesophageal reflux who presented to the hospital because of chest discomfort. Patient states that he was in her normal state of health until 10 PM last night when he started developing a pain/burning in his mid sternum region without any radiation to neck, back, shoulder, arm. He denied any nausea , vomiting, diaphoresis, shortness of breath, dyspnea, lightheadedness, dizziness. Patient states that the pain was a 5/10 on a pain scale and lasted for approximately 10-15 minutes at a time and would ease up on its own. Patient came to emergency department was given aspirin and nitroglycerin with complete resolution of his pain. Patient was just here in the hospital on August at that time he also appeared to have a non-ST elevated myocardial infarction. He was evaluated by on-call residential worker Dr. Mendoza. Patient is deferring any intervention at that time and was planning to have coronary angiogram performed, however he left AGAINST MEDICAL ADVICE because he had to go to work in order to pay bills. Patient states that he was doing well without any complications. He did go to emergency department on 09/12/17 because he is having some discomfort at that time. Patient had workup done and was discharged home. Patient was evaluated in emergency department this time and started to have cardiac workup done with troponin and EKGs. Patient had acute elevation of troponin to 2.85 with development of Q waves in inferior leads. I notified patient of the new findings and non-ST elevated myocardial infarction. Patient is in agreement with procedure at this time. Review of Systems Cardiovascular: COMPLAINS OF: Chest pain Except as stated in HPI: all other systems reviewed are Neg Past Family Social History Past Medical History Hypertension Hyper lipidemia Gastroesophageal reflux Past Surgical History Tonsillectomy Reported Medications Last Impressions Chest X-Ray 09/17/17 0325 Signed Impressions: CONCLUSION: No acute cardiopulmonary disease. Allergies: Coded Allergies: No Known Allergies (Verified , 10/25/15) Family History Family history reviewed and patient does not know much about his family history. Social History Patient used to smoke but he quit long time ago, he does drink alcohol approximately 2-3 times weekly. Does smoke marijuana occasionally Physical Exam Vital Signs Vital Signs Date Time Temp Pulse Resp B/P (MAP) Pulse Ox O2 Delivery O2 Flow Rate FiO2 09/18/17 06:00 97 21 09/18/17 04:14 97.4 60 20 131/67 (88) 97 09/18/17 02:24 96.9 60 20 131/67 (88) 97 09/18/17 01:55 09/18/17 01:47 68 128/75 (92) 09/18/17 00:51 63 16 135/81 (99) 98 Nasal Cannula 2.00 09/17/17 23:56 65 16 136/87 (103) 98 Nasal Cannula 2.00 09/17/17 23:46 Nasal Cannula 2.00 09/17/17 23:39 81 16 148/89 (108) 98 Room Air 09/17/17 23:23 173/97 (122) 09/17/17 23:13 97.9 69 16 178/105 (129) 100 09/17/17 23:13 62 Room Air Physical Exam GENERAL: Well-developed, well-nourished, in no acute distress. alert and orientated HEENT: Head is normocephalic without any lesions or masses noted. Facial features are symmetric. Eyes: Pupils equal round reactive to light. Extraocular muscles are intact. Conjunctivae were clear. Oropharyngeal: Pharynx without any erythema edema. Tongue is midline without deviation. Buccal mucosa is moist without any masses or lesions NECK: Supple without any masses. Trachea midline no deviation. No JVD, no bruits are appreciated CARDIAC: Regular rhythm, regular rate. S1/S2 are heard. No murmurs gallops or rubs. LUNGS: Clear to auscultation bilaterally. No wheeze, rhonchi or rales. No use of accessory muscles on inspiration or expiration. ABDOMEN: Soft, nontender. Nondistended. Bowel sounds heard in all 4 quadrants. No organomegaly or masses. Negative rebound, negative guarding EXTREMITIES: No edema, pulses are equal bilaterally. No cyanosis or clubbing NEUROLOGY: Mood and affect appear appropriate. Cranial nerves II through XII grossly intact. Muscle strength 5/5 in upper and lower extremities bilaterally. Deep tendon reflexes are 2+ in upper and lower extremities bilaterally. Laboratory Laboratory Tests Test 09/17/17 23:15 09/18/17 05:15 White Blood Count 10.9 Red Blood Count 5.06 Hemoglobin 13.8 Hematocrit 42.5 Mean Corpuscular Volume 84.0 Mean Corpuscular Hemoglobin 27.2 Mean Corpuscular Hemoglobin Concent 32.4 Red Cell Distribution Width 13.3 Platelet Count 292 Mean Platelet Volume 8.3 Neutrophils (%) (Auto) 60.6 Lymphocytes (%) (Auto) 30.0 Monocytes (%) (Auto) 5.9 Eosinophils (%) (Auto) 1.5 Basophils (%) (Auto) 2.0 Neutrophils # (Auto) 6.6 Lymphocytes # (Auto) 3.3 Monocytes # (Auto) 0.6 Eosinophils # (Auto) 0.2 Basophils # (Auto) 0.2 CBC Comment DIFF FINAL Differential Comment Blood Urea Nitrogen 14 Creatinine 1.00 Random Glucose 113 Calcium Level 8.2 Sodium Level 133 Potassium Level 3.2 Chloride Level 99 Carbon Dioxide Level 24.1 Anion Gap 10 Estimat Glomerular Filtration Rate 80 Total Creatine Kinase 265 Creatine Kinase MB 4.1 Troponin I LESS THAN 0.02 2.85 Result Diagram: 09/17/17231409/17/172314 Imaging Last Impressions Chest X-Ray 09/17/172314 Signed Impressions: CONCLUSION: No acute cardiopulmonary disease. Caprini VTE Risk Assessment Caprini VTE Risk Assessment: No/Low Risk (score <= 1) Caprini Risk Assessment Model Point Value = 1 Point Value = 2 Point Value = 3 Point Value = 5 Age 41-60 Minor surgery BMI > 25 kg/m2 Swollen legs Varicose veins or History of unexplained or recurrent spontaneous Oral contraceptives or hormone replacement Sepsis (< 1 month) Serious lung disease, including pneumonia (< 1 month) Abnormal pulmonary function Acute myocardial infarction Congestive heart failure (< 1 month) History of inflammatory bowel disease Medical patient at bed rest Age 61-74 Arthroscopic surgery Major open surgery (> 45 min) Laparoscopic surgery (> 45 min) Malignancy Confined to bed (> 72 hours) Immobilizing plaster cast Central venous access Age >= 75 History of VTE Family history of VTE Factor V Leiden Prothrombin [id number] Lupus anticoagulant Anticardiolipin antibodies Elevated serum homocysteine Heparin-induced thrombocytopenia Other congenital or acquired thrombophilia Stroke (< 1 month) Elective arthroplasty Hip, pelvis, or leg fracture Acute spinal cord injury (< 1 month) Prophylaxis Regimen Total Risk Factor Score Risk Level Prophylaxis Regimen 0-1 Low Early ambulation 2 Moderate Order ONE of the following: *Sequential Compression Device (SCD) *Heparin 5000 units SQ BID 3-4 Higher Order ONE of the following medications: *Heparin 5000 units SQ TID *Enoxaparin/Lovenox 40 mg SQ daily (WT < 150 kg, CrCl > 30 mL/min) *Enoxaparin/Lovenox 30 mg SQ daily (WT < 150 kg, CrCl > 10-29 mL/min) *Enoxaparin/Lovenox 30 mg SQ BID (WT < 150 kg, CrCl > 30 mL/min) AND/OR *Sequential Compression Device (SCD) 5 or more Highest Order ONE of the following medications: *Heparin 5000 units SQ TID (Preferred with Epidurals) *Enoxaparin/Lovenox 40 mg SQ daily (WT < 150 kg, CrCl > 30 mL/min) *Enoxaparin/Lovenox 30 mg SQ daily (WT < 150 kg, CrCl > 10-29 mL/min) *Enoxaparin/Lovenox 30 mg SQ BID (WT < 150 kg, CrCl > 30 mL/min) AND *Sequential Compression Device (SCD) Assessment and Plan Assessment and Plan 47-year-old male who presents with typical chest discomfort with history of recent non-ST elevated myocardial infarction Non-ST elevated myocardial infarction -Patient with increased risk factors to include hypertension, hyperlipidemia, history of tobacco use -Patient with acutely elevated troponin of 2.85 -EKG as reviewed by myself is showing development of Q waves in inferior leads -Cardiology will be consulted and I discussed the case with Dr. Kilgore, urgent transfer to the main hospital for cardiac catheterization -Cardioprotection with aspirin, Lopressor, Nitropaste, atorvastatin -Continue telemetry -Heparin for anticoagulation will be initiated Hypertension -Patient usually takes lisinopril 10 mg at home, will hold that at this time due to his blood pressure and heart rate and patient needing more cardioprotection with other medications Hyperlipidemia -Recent lipid panel from 08/31/17 showed LDL 159 -Continue statin DVT prevention -Patient will be on heparin IV Physician Certification 2 Midnight Certification Type: Admission for Inpatient Services Order for Inpatient Services The services are ordered in accordance with Medicare regulations or non- Medicare payer requirements, as applicable. In the case of services not specified as inpatient-only, they are appropriately provided as inpatient services in accordance with the 2-midnight benchmark. Estimated LOS (days): 3 days is the estimated time the patient will need to remain in the hospital, assuming treatment plan goals are met and no additional complications. Post-Hospital Plan: Not yet determined Problem Qualifiers (1) Chest pain: Qualified Codes: R07.9 - Chest pain, unspecified Dejon Linton September 18, 2017 07:46
[2017-09-18] MEDS ORDERED: HEPARIN-D5W 25,000 U/250 ML 250 ML IV PRN (08:00)
[2017-09-18] MEDS ORDERED: HEPARIN SODIUM - IV 10,000 UNITS/10 ML VIAL IV ONE (08:00)
[2017-09-18] MEDS: METOPROLOL TARTRATE 25 MG TAB PO SCH ×2 (08:20→21:35)
[2017-09-18] MEDS: ASPIRIN 81 MG CHEW TAB CHEW SCH (08:21)
[2017-09-18] MEDS ORDERED: PILL SPLITTER OTHER PRN (08:30)
[2017-09-18] MEDS: NITROGLYCERIN 2% OINT 1 GM PACKET TOPICAL SCH ×3 (08:31→23:31)
[2017-09-18] MEDS ORDERED: SODIUM CHLORIDE 0.9% FLUSH 10 ML FLUSH IV FLUSH SCH (09:00)
[2017-09-18 09:08] LABS: HEMATOCRIT 44.7 % (39.0-51.0); HEMOGLOBIN 14.6 GM/DL (13.0-17.0); MEAN CELL VOLUME 83.2 FL (80.0-100.0); MEAN CORPUSCULAR HEMOGLOBIN 27.3 PG (27.0-34.0); MEAN CORPUSCULAR HGB CONC 32.7 % (32.0-36.0); MEAN PLATELET VOLUME 8.6 FL (7.0-11.0); PLATELET COUNT 288 TH/MM3 (150-450); RED BLOOD COUNT 5.37 MIL/MM3 (4.50-5.90); RED CELL DISTRIBUTION WIDTH 13.2 % (11.6-17.2); WHITE BLOOD COUNT 6.1 TH/MM3 (4.0-11.0)
[2017-09-18 09:13] LABS: PROTHROMBIN TIME - PATIENT 9.7 SEC (9.8-11.6)
[2017-09-18 10:45] LABS: TROPONIN I 3.02 NG/ML (0.02-0.05)
[2017-09-18] MEDS ORDERED: MIDAZOLAM HCL 2 MG/2 ML VIAL ONE ×2 (13:56→14:24)
[2017-09-18] MEDS ORDERED: HEPARIN SODIUM - IV 10,000 UNITS/10 ML VIAL IV PRN ×2 (14:00)
[2017-09-18] MEDS ORDERED: HEPARIN-NS/PF INJ 500 ML ONE (14:00)
[2017-09-18] MEDS ORDERED: HEPARIN SODIUM - IV 10,000 UNITS/10 ML VIAL ONE (14:29)
--- NOTE | 2017-09-18 14:36 | MB ---
cc: Angel Kilgore MD DATE: 09/18/2017 HISTORY OF PRESENT ILLNESS: This is a 47-year-old gentleman who was seen 2 weeks ago in the ER, admitted to the hospital, left AMA. He has a history of hypertension. He had an episode of moderate chest pain last night. Presents this morning with substernal chest pressure to [facility]. Currently, chest pain free. Otherwise, denies any fever, chills, cough, GI or bleeding, PND, orthopnea, syncope or dizziness. PAST MEDICAL HISTORY: Per illness of present illness. Has a history of hypertension. SOCIAL HISTORY: He does drink alcohol. He admits to smoking marijuana. Denies tobacco use. ALLERGIES: NONE. MEDICATIONS PRIOR TO ADMISSION: 1. Lisinopril 10 mg daily. 2. Atorvastatin 40 mg at bedtime. 3. Omeprazole 20 mg daily. MEDICATIONS IN THE HOSPITAL: 1. Atorvastatin 20 mg at bedtime. 2. IV heparin. 3. Aspirin 162 mg daily. 4. Metoprolol 12.5 q. 12 hours. 5. 0.5 mg of nitro paste. PHYSICAL EXAMINATION: VITAL SIGNS: Blood pressure 139/89, pulse 59, respiratory rate 14, temperature 96.8, sats 95% on room air. GENERAL: He is alert and oriented x3, in no acute distress. NECK: Supple. No JVD. No bruit. CARDIOVASCULAR: S1, S2. No murmurs, rubs, gallops. LUNGS: Clear to auscultation bilaterally. ABDOMEN: Soft, nontender, nondistended with positive bowel sounds. EXTREMITIES: No lower extremity edema. IMAGING: Chest x-ray shows no acute cardiopulmonary disease. LABORATORY DATA: EKG: Normal sinus rhythm at 64 beats per minute, asymmetric T-wave inversion in lead III and aVF. Repeat EKG: Sinus bradycardia at 59 beats per minute. Repolarization abnormality, otherwise normal. White count 6.1, hemoglobin 14.6, hematocrit 44.7, platelet count 288. INR 1.0, sodium 133, potassium 3.2, chloride 99, BUN 14, creatinine 1.0, glucose 113. Initial troponin was 0.02, second troponin is 2.85, third troponin is 3.02. CK is 305 with a MB 23.5. DIAGNOSES: 1. Biq-JX-quwajvkuz myocardial infarction. 2. Hyponatremia. 3. Hypokalemia. 4. History of noncompliance. DISCUSSION: At this point in time, the left heart catheterization is urgently indicated due to non-STEMI, multiple cardiac risk factors. Agree with aspirin and heparin. Further recommendations based on the details of his heart catheterization. Angel Kilgore MD AWC/TL , 02:16 PM , 02:35 PM
[2017-09-18] MEDS ORDERED: TIROFIBAN INFUSION INJ 250 ML IV ONE (14:55)
[2017-09-18] MEDS ORDERED: PRASUGREL 10 MG TAB ONE (14:55)
[2017-09-18] MEDS ORDERED: TIROFIBAN INFUSION INJ 250 ML IV SCH (15:08)
--- NOTE | 2017-09-18 15:12 | CATHPROC ---
[employer] HIS Report Study Information Study Number Admission Scheduled Start Study Start [id number] Sep 18 2017 7:43AM 09/18/2017 Sep 18 2017 1:49PM [facility] Cardiac Catheterization Admit Source Facility Department Other [facility] - Family Program Specialist Physician and Clinical Staff Initial Angel Pritchett Outsole Splicer Lobo Keenan,RN Recorder Anne Ramos ,RT(R) Scrub Aydee Proctor,RT(R) Procedures Performed Procedure Location (Site) Vessel Name Coronary Angiograms LCA Left Coronary Coronary Angiograms RCA Right Coronary L Heart Cath LV Gram-hand inj. LV LV Ventricle PTCA OM1 Mid CIRC Stent CIRC Prox CIRC Wire insertion Fem Art (right) Femoral Art Equipment Time Sensor Operator Description Size Mfg Part Number Used/Scraped [id number] 14:29 Momail CRITICAL CARE WIRE, ASAsellpoints PROWATER 180CM 180CM Used *[id number] TRANSDUCER, TRUWAVE [id number] 13:51 MAYFIELD RODRÍGUEZ * Used W/STOCKCOCK *[id number] 14:45 [place] [employer] WIRE, CHOICE PT 182CM 182CM Used *[id number] [id number] *[id number] [id number] *[id number] *[id number] 13:51 MEDLINE [employer] PACK, CCL CUSTOM * Used *[id number] 13:51 [employer] PACER PEN, SKIN DUAL W/ RULER * Used *[id number] 14:37 MEDTRONIC BALLOON, 2.0 X 10MM EUPHORA 10MM Used *[id number] 14:41 MEDTRONIC STENT, 2.5 8 INTEGRITY 2.5 8 Used *[id number] 14:39 Infinite Z MEDICAL 30 WHITNEY INDEFLATOR Used *[id number] 14:29 Infinite Z MEDICAL SHEATH, FR6.5 PRELUDE 11CM FR 6.5 038ACT Used *[id number] 13:51 Infinite Z MEDICAL WIRE, 3MMJ .035 180CM 180CM Used *[id number] 13:51 NAMIC MANIFOLD, 4 PORT * Used *[id number] 13:51 NYCOMED OMNIPAQUE, 350 MG, 150ML 150ML [id number] Used [id number] 13:51 GARCIAS MED[employer] BLANKET,WARM AIR CCL * Used *[id number] 13:51 TERUMO MEDICAL SHEATH, FR4 TERUMO (10CM) FR 4 Used *[id number] Equipment Model, Serial, Lot Number and Expiration Data Description Model Number Serial Number Lot Number Expiration Date STENT, 2.5 8 INTEGRITY [id number] 12-31-2017 WIRE, CHOICE PT 182CM [id number] 05-27-2019 History: Current Medications Medication Dosage/Unit Route Frequency Last Date/Time Taken ASA History: Allergies Allergy Reaction No Known Allergies History: Risk Factors Family History of Hypertension Dyslipidemia Previous UT Previous Heart Failure Premature CAD Yes Yes No No No Prior Valve Prior PCI Prior CABG Surgery No No No Cerebrovascular Peripheral Artery Chronic Lung On Dialysis Diabetes Disease Disease Disease No No No No No History: Stress Tests Stress or Imaging Studies Performed No History: Other Current Smoker Method Quit Packs a Day Years Used Pack Years No Cigarettes 18 Years Ago 1 8 8 Labs Hgb (g/dl) Hct (%) WBC (l/cumm) Platelets (thousands) 11.60-17.00 35.00-51.00 4.00-11.00 150.00-450.00 14.6 44.7 6.1 288 Glucose (mg/dl) BUN (mg/dl) Creatinine (mg/dl) BUN:Creatinine (1:x) 74.00-106.00 7.00-18.00 0.50-1.30 10.00-20.00 113 14 1.0 14 Na (meq/l) K (meq/l) 136.00-145.00 3.50-5.10 133 3.2 INR (PTT:PT) 0.90-1.10 1 Troponin I (ng/ml) CPK (u/l) CPK-MB (ng/ML) 0.02-0.05 26.00-308.00 0.50-3.60 3.02 265 4.1 Medication Medication Total Dose (Bolus/Oral) Medication Total Dosage/Unit 1% XYLOCAINE 20 mL ATROPINE 0.6 mg EFFIENT 60 mg FENTANYL 75 mcg HEPARIN 3500 units VERSED 3 mg Medications (Bolus/Oral) Medication Time Given Dosage/Unit Administered By Reason VERSED 09/18/2017 2:20:33 PM 2 mg Lobo Keenan 2 mg VERSED given in lab by Lobo Keenan RN in Right Antecubital via Peripheral IV. Ordered by Angel Mckeon. FENTANYL 09/18/2017 2:20:39 PM 25 mcg Lobo Keenan 25 mcg FENTANYL given in lab by Lobo Keenan RN in Right Antecubital via Peripheral IV. Ordered by Angel Kilgore. 1% XYLOCAINE 09/18/2017 2:21:07 PM 20 mL Angel Kilgore 20 mL 1% XYLOCAINE given in lab by Angel Kilgore in Right Groin via Subcutaneous. Ordered by Angel Steel. VERSED 09/18/2017 2:25:00 PM 1 mg Lobo Keenan 1 mg VERSED given in lab by Lobo Keenan RN in Right Antecubital via Peripheral IV. Ordered by Angel Mckeon. ATROPINE 09/18/2017 2:26:23 PM 0.6 mg Lobo Keenan 0.6 mg ATROPINE given in lab by Lobo Keenan RN via Peripheral IV. Ordered by Angel Kilgore. FENTANYL 09/18/2017 2:32:37 PM 25 mcg Lobo Keenan 25 mcg FENTANYL given in lab by Lobo Keenan RN in Right Antecubital via Peripheral IV. Ordered by Angel Kilgore. FENTANYL 09/18/2017 2:35:39 PM 25 mcg Lobo Keenan 25 mcg FENTANYL given in lab by Lobo Keenan RN in Right Antecubital via Peripheral IV. Ordered by Angel Kilgore. HEPARIN 09/18/2017 2:38:00 PM 2000 units Lobo Keenan 2000 units HEPARIN given in lab by Lobo Keenan RN via Peripheral IV. Ordered by Angel Kilgore. EFFIENT 09/18/2017 2:51:00 PM 60 mg Lobo Keenan 60 mg EFFIENT given in lab by Lobo Keenan RN in Right Antecubital via Oral. Ordered by Angel Kilgore. HEPARIN 09/18/2017 2:57:10 PM 1500 units Lobo Keenan 1500 units HEPARIN given in lab by Lobo Keenan RN via Peripheral IV. Ordered by Angel Kilgore. Medication (Drip) Medication Time Given Dosage/Unit Concentration/Unit Diluent (ml) Solution IV Solutions 09/18/2017 1:57:05 PM 50 mL (IV) NaCl .9 Patient arrived on IV Solutions in Right Antecubital via Peripheral IV. Pump/Drip Flow using NaCl .9. Initial Case Assessment Cardiovascular HR Rhythm NIBP Chest Pain 53 sr 147/93 0 Edema Present Skin color Skin None Normal Warm Dry Circulatory - Right Pulses Dorsalis Pedis Femoral 2 2 Scale (0,1,2,3,4,d) Circulatory - Left Pulses Dorsalis Pedis Femoral 2 2 Scale (0,1,2,3,4,d) Circulatory - Lower Extremities Color Lower Right Color Lower Left Normal Normal Neurological State Oriented to time-place- Alert Moves all extremities person Respiration - General Respiration Rate SpO2 (%) (B/min) 17 99 Final Case Assessment Cardiovascular HR Rhythm NIBP Chest Pain 53 sr 147/93 0 Edema Present Skin color Skin None Normal Warm Dry Circulatory - Right Pulses Dorsalis Pedis Femoral 2 2 Scale (0,1,2,3,4,d) Circulatory - Left Pulses Dorsalis Pedis Femoral 2 2 Scale (0,1,2,3,4,d) Circulatory - Lower Extremities Color Lower Right Color Lower Left Normal Normal Neurological State Oriented to time-place- Alert Moves all extremities person Respiration - General Respiration Rate SpO2 (%) (B/min) 17 99 Chronological Log Time Study Chronological Log 13:52:36 Patient arrived via Bed. 13:52:37 Patient Name, D.O.B, / Armband Verified By R.N. 13:56:12 Consent signed by the physician and the patient and verified by the Family Program Specialist staff. 13:56:14 Pre-op and post- op instructions given; patient acknowledges understanding of instructions. 13:56:39 Verbal Stimulation=2 Physical Stimulation=2 Airway=2 Respiration=2 TOTAL=8. (0=absent, 1=li mited, 2=present) 13:56:52 Patient has been NPO for More than 6Hrs. 13:56:53 Skin Breakdown- none per patient 13:57:04 A # 20 IV was noted in the Antecubital (right). Grade = 0 13:57:05 Patient arrived on IV Solutions in Right Antecubital via Peripheral IV. Pump/Drip Flow usin g NaCl .9. 13:58:41 History and physical on the chart or being dictated. Assessment: Initial Case, HR=53 BPM, Rhythm=sr, EAVS=340/93 mmhg, Chest Pain=0, Edema=None, Col or=Normal, Skin = Warm, Dry Right Pulses: Jarek Ped=2, Femoral=2 Left Pulses: Jarek Ped=2, Femoral=2 13:58:42 Lower Right Extremities: Color=Normal Lower Left Extremities: Color=Normal Neurological: State=Alert, Ox3, POST Respiration: Resp=17 B/min, SpO2=99 % Vitals capture started with the following parameters, Patient=Adult, Interval=5 min, Initial Pr mqhagb=119 mmHg, 13:59:30 Deflation Rate=5 mmHg, Cuff placed on Left Arm 14:00:43 HR=57 bpm, TJKO=000/93 mmhg, SpO2=99.0 %, Resp=12 B/min, Pain=0, Amaury=10, Valentino=2 14:05:05 HR=51 bpm, ZJMC=812/90 mmhg, SpO2=99.0 %, Resp=8 B/min, Pain=0, Amaury=10, Valentino=2 14:05:19 Reference ECG taken 14:05:58 Bilateral groins prepped with 2% chlorhexidine, and draped after a 3 minute waiting time. 14:06:32 MD paged 14:08:06 MD responded 14:08:18 Pressure channel 1 zeroed. 14:10:10 HR=53 bpm, JONT=973/85 mmhg, SpO2=98.0 %, Resp=10 B/min 14:10:51 MD arrived. 14:15:07 HR=49 bpm, SZRE=612/86 mmhg, TiF9=225.0 %, Resp=40 B/min, Pain=0, Amaury=10, Valentino=2 Time Out. Correct patient, correct procedure, correct physician, labs, allergies, and equipment verified with lab rep 14:17:53 team present. Fire risk assesment completed (see hard stop sheet for coding). Time Out Conc urred by MD and individual staff in procedure. 14:20:06 HR=60 bpm, EQCX=522/88 mmhg, SpO2=99.0 %, Resp=24 B/min, Pain=0, Amaury=10, Valentino=2 14:20:18 Case Start 14:20:33 2 mg VERSED given in lab by Lobo Keenan RN in Right Antecubital via Peripheral IV. Brennae red by Angel Kilgore. 25 mcg FENTANYL given in lab by Lobo Keenan RN in Right Antecubital via Peripheral IV. Graeme red by Jame, 14:20:39 Angel. 20 mL 1% XYLOCAINE given in lab by Angel Kilgore in Right Groin via Subcutaneous. Ordered by Jame, 14:21:07 Angel. 14:22:11 Access site was Right Femoral Artery. 14:22:16 A wire was inserted via Fem Art (right). 14:22:19 A SHEATH, FR4 TERUMO (10CM) FR 4 was advanced into the Fem Art (right) using the Percutaneo us technique. A JR 4.0 INFINITI CATHETER FR 4 was advanced over a wire. OMNIPAQUE, 350 MG, 150ML 150ML was us ed for 14:23:10 injections. Recorded Pressure: LV, HR=56, Condition=Condition 1 14:23:56 (Left Ventricle) LV 128/0/7 14:24:02 The LV was manually injected with 10 cc's and visualized. OMNIPAQUE, 350 MG, 150ML 150ML us ed. Recorded Pressure: LV, Ao, HR=58, Condition=Condition 1 14:24:18 (Left Ventricle) LV 114/1/13, (Aorta) Ao 133/83/105 14:25:00 1 mg VERSED given in lab by Lobo Keenan RN in Right Antecubital via Peripheral IV. Graeme red by Angel Kilgore. 14:25:03 The RCA was injected and visualized at various angles. OMNIPAQUE, 350 MG, 150ML 150ML used . 14:25:09 HR=62 bpm, HSRW=588/88 mmhg, SpO2=98 %, Resp=15 B/min, Pain=0, Amaury=10, Valentino=2 After removing the current catheter a JL 4.0 INFINITI CATHETER FR 4 was advanced over a WIRE, 3 MMJ .035 180CM 14:26:06 180CM. 14:26:23 0.6 mg ATROPINE given in lab by Lobo Keenan RN via Peripheral IV. Ordered by Angel Kilgore. 14:26:52 The LCA was injected and visualized at various angles. OMNIPAQUE, 350 MG, 150ML 150ML used . 14:30:04 HR=89 bpm, CSWA=690/87 mmhg, SpO2=94 %, Resp=21 B/min, Pain=0, Amaury=10, Valentino=2 14:30:15 Catheter was removed A SHEATH, FR6.5 PRELUDE 11CM FR 6.5 was exchanged in the Fem Art (right). This was necessary in order to 14:31:07 accomodate a larger catheter. 25 mcg FENTANYL given in lab by Lobo Keenan, SRINIVASAN in Right Antecubital via Peripheral IV. Orde red by Jame, 14:32:37 Angel. 14:33:16 Activated Clotting Time Drawn A XB 4.0 GUIDE CATHETER FR 6 was advanced over a wire. OMNIPAQUE, 350 MG, 150ML 150ML was used for 14:33:21 injections. 14:34:45 A WIRE, ASAHI PROWATER 180CM 180CM was inserted via Fem Art (right). 14:35:05 HR=80 bpm, YIEX=559/87 mmhg, SpO2=96.0 %, Resp=10 B/min, Pain=0, Amaury=10, Valentino=2 25 mcg FENTANYL given in lab by Lobo Keenan RN in Right Antecubital via Peripheral IV. Brennae red by Jame, 14:35:39 Angel. 14:36:35 ACT (Normal Range 90-180) = 153 14:37:16 Interventional wire has crossed the lesion A BALLOON, 2.0 X 10MM EUPHORA 10MM was inserted over WIRE, ASAHI PROWATER 180CM 180CM via the F em Art 14:37:20 (right). A BALLOON, 2.0 X 10MM EUPHORA 10MM over a WIRE, ASAHI PROWATER 180CM 180CM in the OM1 Mid was i nflated 14:37:37 using a 30 WHITNEY INDEFLATOR at 6 whitney for 10 sec. 14:38:00 2000 units HEPARIN given in lab by Lobo Keenan, SRINIVASAN via Peripheral IV. Ordered by Angel Torrez. A BALLOON, 2.0 X 10MM EUPHORA 10MM over a WIRE, ASAHI PROWATER 180CM 180CM in the OM1 Mid was i nflated 14:38:47 using a 30 WHITNEY INDEFLATOR at 10 whitney for 30 sec. A BALLOON, 2.0 X 10MM EUPHORA 10MM over a WIRE, ASAHI PROWATER 180CM 180CM in the OM1 Mid was i nflated 14:39:44 using a 30 WHITNEY INDEFLATOR at 9 whitney for 15 sec. 14:40:04 HR=85 bpm, QHFW=277/88 mmhg, SpO2=96.0 %, Resp=4 B/min, Pain=0, Amaury=10, Valentino=2 14:41:02 Balloon Removed. 14:42:37 Prowater Wire removed for re shape 14:43:01 A WIRE, ASAHI PROWATER 180CM 180CM was inserted via Fem Art (right). 14:44:46 Prowater Wire removed 14:45:03 HR=92 bpm, WLYA=506/94 mmhg, SpO2=93 %, Resp=17 B/min, Pain=0, Amaury=10, Valentino=2 14:45:54 A WIRE, CHOICE PT 182CM 182CM was inserted via Fem Art (right). 14:46:32 Interventional wire has crossed the lesion An STENT, 2.5 8 INTEGRITY 2.5 8 Bare Metal Stent was inserted through a XB 4.0 GUIDE CATHETER F R 6 over a 14:48:01 WIRE, CHOICE PT 182CM 182CM. A STENT, 2.5 8 INTEGRITY 2.5 8 was deployed using a 30 WHITNEY INDEFLATOR at 10 atmospheres for 13 seconds in the 14:48:36 CIRC Prox. 14:49:33 Delivery device removed 14:49:41 Wire removed 14:49:46 Catheter was removed 14:50:06 HR=86 bpm, JTHF=516/92 mmhg, SpO2=96.0 %, Resp=14 B/min, Pain=0, Amaury=10, Valentino=2 14:50:07 Activated Clotting Time Drawn 14:50:15 Case End 14:51:00 60 mg EFFIENT given in lab by Lobo Keenan, RN in Right Antecubital via Oral. Ordered by Angel Kilgore. Assessment: Final Case, HR=53 BPM, Rhythm=sr, XMKO=096/93 mmhg, Chest Pain=0, Edema=None, Color =Normal, Skin = Warm, Dry Right Pulses: Jarek Ped=2, Femoral=2 Left Pulses: Jarek Ped=2, Femoral=2 14:51:26 Lower Right Extremities: Color=Normal Lower Left Extremities: Color=Normal Neurological: State=Alert, Ox3, POST Respiration: Resp=17 B/min, SpO2=99 % 14:51:33 Catheter(s) removed without difficulty 14:51:54 In the Fem Art (right) the SHEATH, FR6.5 PRELUDE 11CM FR 6.[address] by Angel Steel. 14:52:02 Sterile dressing applied to site 14:52:03 No case complications noted. 14:52:04 Cine recording checked. 14:52:06 Bedside Report will be given. 14:52:07 Implantable Device card placed in patient's chart. 14:52:10 A Left Heart Cath was performed. 14:55:07 HR=68 bpm, TENG=548/91 mmhg, SpO2=97.0 %, Resp=16 B/min, Pain=0, Amuary=10, Valentino=2 14:56:38 ACT (Normal Range 90-180) = 205 14:57:10 1500 units HEPARIN given in lab by Lobo Keenan, SRINIVASAN via Peripheral IV. Ordered by Angel Dickson. 15:00:08 HR=78 bpm, HPXO=862/83 mmhg, SpO2=97.0 %, Resp=8 B/min, Pain=0, Amaury=10, Valentino=2 15:03:54 [facility] 15[facility] Activated Clotting Time Drawn 15:09:55 ACT (Normal Range 90-180) = 254 End Study - Contrast Media Used In Study Contrast Total Opened (mL) Total Used (mL) Total Wasted (mL) Omnipaque 150 150 0 End Study - Maximum Contrast Load Max Contrast Load (mL) 480.0 End Study - Radiation Exposure Fluoro Time (minutes) 8.8 End Study - Patient Disposition Complications Transferred To Interventional Outcome No Critical Care Bed successful
[2017-09-18] MEDS ORDERED: PRASUGREL 10 MG TAB PO ONE (15:15)
[2017-09-18] MEDS ORDERED: MISC INFORMATION XX ONE (15:15)
[2017-09-18] MEDS ORDERED: SODIUM CHLORIDE 0.9% FLUSH 10 ML FLUSH IV FLUSH PRN ×2 (15:15)
[2017-09-18] MEDS ORDERED: LISINOPRIL 5 MG TAB PO ONE (15:15)
--- NOTE | 2017-09-18 15:57 | MA ---
cc: Angel Kilgore MD DATE: 09/18/2017 PROCEDURE PERFORMED: Left heart catheterization, left ventriculography, coronary angiography, PDC of the proximal mid first obtuse marginal vessel and PCI bare-metal stent of the proximal left circumflex vessel. INDICATIONS FOR PROCEDURE: Non-STEMI coronary disease. PROCEDURE: The patient was brought to the cardiac catheterization laboratory, prepped and draped in usual sterile fashion. 10 mL of 1% lidocaine was used to locally anesthetize the right common femoral artery. A 4-[place] sheath was placed in the right common femoral artery. A 4-[place] JR4, JL4 catheters were used to perform left and right coronary angiography, left ventriculography. FINDINGS: LV pressure is 115/0-2. EF 60%. The right coronary artery is dominant, has mild diffuse disease in the proximal segment up to 20-30% angiographically. There is a focal 30% to 40% stenosis in the distal right coronary artery. Distal right coronary artery appears to possibly have a 50% stenosis just at the bifurcation versus normal vessel tapering, I suspect it is a combination of both. Right posterolateral artery is a relatively small vessel, 220-225 mm vessel, reference vessel diameter with no significant obstructive disease. Right PDA reference vessel diameter 2.5 mm to 2.75 mm in the proximal segment. No focal stenosis imaged. Left main coronary artery has no significant disease angiographically. First obtuse marginal vessel is a long vessel. It approaches the apex. The reference vessel diameter appears to be possibly 2 mm. There is probably diffuse disease in the ostial proximal segment of 50-60% angiographically. In the proximal mid segment there is a focal 95% stenosis. Left circumflex vessel has a focal 95% stenosis in the proximal segment. Beyond this lesion there is a large obtuse marginal vessel approaching the apex. Reference vessel diameter 3 mm with an ostial proximal 60-70% stenosis. The AV groove left circumflex at this bifurcation with this marginal has a 60-70% stenosis and supplies 2 small posterolateral arteries distally. LAD is transapical, has a proximal 20-30% stenosis. The distal inferoapical wall first diagonal artery is a small vessel, probably 2 mm reference vessel diameter with a proximal mid 75-80% stenosis. DISCUSSION: It appears that the first obtuse marginal vessel and/or the proximal left circumflex vessel are the culprit lesions as they are the most high grade lesions. Therefore, I did think it was medically necessary to proceed to PCI of both those lesions. A 4-[place] sheath was exchanged for 6-[place] sheath. 2000 units of heparin was given. ACT was 203. Additional 1500 units of heparin was given. Final ACT pending at the time of dictation. A 6-[place] XP 4.0 guide, 0.014 Prowater guidewire was used to cross the proximal, mid first obtuse marginal vessel lesion. This lesion was balloon angioplastied with a 2.0, 10 Euphora balloon, required 10 atmospheres of pressure due to significant wasting of the balloon with dog boning. Did 2 inflations up to 10 atmospheres in the proximal mid segment. Stenosis went from 95% to 0% with ABEL 3 flow. Attention was directed to the Prowater guidewire into the proximal circumflex, but due to vessel tortuosity I was not able to do that. Therefore, I used a 0.014 Choice PT floppy and was able to place the wire across the lesion into the distal obtuse marginal vessel. I then placed a 259 Integrity stent directly in the lesion. Note that there was obstruction of contrast around the stent and could not image the vessel beyond the stent with the stent undeployed. Did 1 inflation 10 atmospheres for 20 seconds. Stenosis went from 95% to 0% with ABEL 3 flow. CONCLUSION: 1. Pee-EV-wjftpjuoq myocardial infarction, culprit probably 95% long proximal mid first obtuse marginal vessel stenosis and/or proximal left circumflex vessel stenosis as detailed above, otherwise moderate to severe 3-vessel coronary artery disease in a right dominant system as detailed above. 2. Normal LV systolic function, ejection fraction 60%. 3. Recommend Effient 60 mg p.o. load and 10 mg daily for 12-15 months, aspirin 162 mg daily. Treat lipids per NCEP guidelines. Beta hector is being held due to bradycardia with resting heart rate in the high 40's at the start of the procedure requiring atropine. We will start PK inhibitor as clinically tolerated as well. MD HUEY Betancourt/TL , 03:07 PM , 03:55 PM
[2017-09-18] MEDS ORDERED: IOHEXOL 350 MG/ML 100 ML BTL (for Cath Lab) OTHER ONE (16:03)
[2017-09-18] MEDS ORDERED: IOHEXOL 350 MG/ML 50 ML BTL (for Cath Lab) OTHER ONE (16:03)
[2017-09-18] MEDS: SODIUM CHLORIDE 0.9% FLUSH 10 ML FLUSH IV FLUSH SCH (20:03)
[2017-09-18] MEDS ORDERED: ATORVASTATIN 40 MG TAB PO SCH (21:00)
[2017-09-19] VITALS (17 sets, daily range): BP systolic 131–140; BP diastolic 75–83; PULSE 50–61; RESP 15–18; TEMP 98.5–98.7; O2SAT 95–98
[2017-09-19] MEDS: NITROGLYCERIN 2% OINT 1 GM PACKET TOPICAL SCH ×2 (05:44→12:00)
[2017-09-19 07:05] LABS: AUTOMATED NEUTROPHIL # 5.4 TH/MM3 (1.8-7.7); BASOPHIL % 0.5 % (0.0-2.0); EOSINOPHIL # 0.1 TH/MM3 (0-0.4); EOSINOPHIL % 1.3 % (0.0-4.0); HEMATOCRIT 41.7 % (39.0-51.0); HEMOGLOBIN 13.4 GM/DL (13.0-17.0); LYMPH % 22.4 % (9.0-44.0); LYMPHOCYTE # 1.7 TH/MM3 (1.0-4.8); MEAN CORPUSCULAR HEMOGLOBIN 27.6 PG (27.0-34.0); MEAN CORPUSCULAR HGB CONC 32.1 % (32.0-36.0); MEAN PLATELET VOLUME 8.8 FL (7.0-11.0); MONO % 6.4 % (0.0-8.0); MONOCYTE # 0.5 TH/MM3 (0-0.9); NEUT % 69.4 % (16.0-70.0); PLATELET COUNT 257 TH/MM3 (150-450); RED BLOOD COUNT 4.85 MIL/MM3 (4.50-5.90); RED CELL DISTRIBUTION WIDTH 13.9 % (11.6-17.2); WHITE BLOOD COUNT 7.8 TH/MM3 (4.0-11.0)
[2017-09-19 07:26] LABS: BICARBONATE 24.3 MEQ/L (21.0-32.0); CREATININE 1.01 MG/DL (0.60-1.30); DIRECT BILIRUBIN ADULT 0.1 MG/DL (0.0-0.2)
[2017-09-19 07:27] LABS: TOTAL PROTEIN 6.3 GM/DL (6.4-8.2)
[2017-09-19 07:29] LABS: CHOLESTEROL/ HDL RATIO 4.25 RATIO; HDL CHOLESTEROL 54.5 MG/DL (40.0-60.0); INDIRECT BILIRUBIN 0.3 MG/DL (0.0-0.8); TOTAL BILIRUBIN ADULT 0.4 MG/DL (0.2-1.0)
--- NOTE | 2017-09-19 07:30 | EKG ---
Date Performed: 09/18/2017 Time Performed: 05:58:12 PTAGE: 47 years EKG: SINUS BRADYCARDIA POSSIBLE RIGHT VENTRICULAR CONDUCTION DELAY POSSIBLE INFERIOR MYOCARDIAL INFARCTION BORDERLINE ECG PREVIOUS TRACING : 09/18/2017 00.06 DOCTOR: Johnny Grigsby Interpretating Date/Time 09/19/2017 07:26:29
--- NOTE | 2017-09-19 07:36 | EKG ---
Date Performed: 09/18/2017 Time Performed: 00:06:52 PTAGE: 47 years EKG: SINUS BRADYCARDIA BORDERLINE ECG PREVIOUS TRACING : 09/17/2017 23.10 DOCTOR: Johnny Grigsby Interpretating Date/Time 09/19/2017 07:31:43
--- NOTE | 2017-09-19 07:37 | EKG ---
Date Performed: 09/17/2017 Time Performed: 23:10:05 PTAGE: 47 years EKG: Sinus rhythm NORMAL ECG INTERPRETATION BASED ON A DEFAULT AGE OF 41 YEARS PREVIOUS TRACING : 08/31/2017 13.27 DOCTOR: Johnny Grigsby Interpretating Date/Time 09/19/2017 07:32:08
[2017-09-19] MEDS ORDERED: ASPIRIN 81 MG CHEW TAB PO SCH (09:00)
[2017-09-19] MEDS ORDERED: PRASUGREL 10 MG TAB PO SCH (09:00)
[2017-09-19] MEDS: METOPROLOL TARTRATE 25 MG TAB PO SCH (09:00)
[2017-09-19] MEDS ORDERED: LISINOPRIL 5 MG TAB PO SCH (09:00)
--- NOTE | 2017-09-19 09:07 | HHI.PR ---
Subjective Remarks patient states has been up and ambualting already no nausea or chest pain HR sinus in the 70s Objective Vitals Vital Signs Date Time Temp Pulse Resp B/P (MAP) Pulse Ox O2 Delivery O2 Flow Rate FiO2 09/19/17 07:51 98.6 57 15 132/75 (94) 96 09/19/17 07:12 52 09/19/17 06:12 57 09/19/17 05:13 60 09/19/17 04:00 60 09/19/17 03:00 98.7 58 18 131/83 (99) 98 09/19/17 03:00 54 09/19/17 02:15 50 09/19/17 01:00 58 09/19/17 00:00 54 09/18/17 23:27 97.9 56 18 124/80 (95) 99 09/18/17 23:00 60 09/18/17 22:00 62 09/18/17 21:00 58 09/18/17 20:20 18 09/18/17 20:00 56 09/18/17 19:47 98.1 55 18 142/79 (100) 97 09/18/17 19:00 60 09/18/17 15:15 99 Room Air I/O 09/18/17 09/18/17 09/18/17 09/19/17 09/19/17 09/19/17 07:00 15:00 23:00 07:00 15:00 23:00 Intake Total 960 ml Output Total 1025 ml Balance -65 ml Intake Oral 960 ml Output Urine Total 1025 ml # Voids 1 1 Result Diagram: 09/19/17 0450 09/19/17 0450 Imaging Last Impressions Chest X-Ray 09/17/17 2315 Signed Impressions: CONCLUSION: No acute cardiopulmonary disease. Objective Remarks awake and alert no acute distress anciteric lungs- clear regular rhythm abdomen soft, nontender right groin- no hematoma peripheral pusles ++ Procedures 09/18- cardiac cath A/P Problem List: (1) Non-ST elevated myocardial infarction ICD Code: I21.4 - Non-ST elevation (NSTEMI) myocardial infarction (2) Chest pain ICD Code: R07.9 - Chest pain, unspecified Status: Acute Assessment and Plan 47-year-old male who presents with typical chest discomfort with history of recent non-ST elevated myocardial infarction Non-ST elevated myocardial infarction S/P cardiac cath- Lcx lesion with 2-3 VD good EF -Cardioprotection with aspirin, Lopressor,Effiant , atorvastatin -Continue telemetry Hypertension - lisinopril 10 mg at home, Hyperlipidemia -Recent lipid panel from 08/31/17 showed LDL 159 - statin 8-0 mg hs DVT prevention- up and ambulate DC today cleared with cardiology- per Recommendations- home on Plavix patient states [facility] and will set up fo r primary care ff up with them will dc PPI- home meds- forpatient thakes this for ocasional heartburn- will change to Zantac advise on reflux measures Problem Qualifiers (1) Chest pain: Qualified Codes: R07.9 - Chest pain, unspecified Elana Lopez MD September 19, 2017 09:07
[2017-09-19] MEDS ORDERED: POTASSIUM CHLORIDE 20 MEQ CONTROLLED RELEASE TAB PO ONE (09:15)
[2017-09-19] MEDS: SODIUM CHLORIDE 0.9% FLUSH 10 ML FLUSH IV FLUSH SCH (09:17)
[2017-09-19] MEDS ORDERED: ATOR80TA45 PO (13:37)
[2017-09-19] MEDS ORDERED: LISI-519 PO (13:37)
[2017-09-19] MEDS ORDERED: METO25TA3 PO (13:37)
[2017-09-19] MEDS ORDERED: PLAV75TA29 PO (13:40)
[2017-09-19] MEDS ORDERED: ASPI81 PO (13:40)
[2017-09-19] MEDS ORDERED: ZANT150T2 PO (13:45)
--- NOTE | 2017-09-19 14:05 | PD.CARD.PN ---
Subjective Subjective Remarks assymptomatic in nad Objective Medications Current Medications Medications (Trade) Dose Ordered Sig/Jaison Route Start Time Stop Time Status Last Admin (Tylenol) 650 mg Q4H PRN PO 09/18/17 00:00 09/18/17 19:16 (Narcan Inj) 0.4 mg UNSCH PRN IV PUSH 09/18/17 00:00 (Milk Of Magnesia Liq) 30 ml Q12H PRN PO 09/18/17 00:00 (Senokot) 17.2 mg Q12H PRN PO 09/18/17 00:00 (Dulcolax Supp) 10 mg DAILY PRN RECTAL 09/18/17 00:00 (Lactulose Liq) 30 ml DAILY PRN PO 09/18/17 00:00 (Nitroglycerin 2% Oint) 0.5 inch Q6HR TOPICAL 09/18/17 07:30 09/19/17 05:44 (Lopressor) 12.5 mg Q12HR PO 09/18/17 09:00 09/18/17 21:35 (Pill Splitter) 1 ea UNSCH PRN OTHER 09/18/17 08:30 (NS Flush) 2 ml UNSCH PRN IV FLUSH 09/18/17 15:15 (NS Flush) 2 ml BID IV FLUSH 09/18/17 21:00 09/19/17 09:17 (Aspirin Chew) 162 mg DAILY PO 09/19/17 09:00 09/19/17 09:16 (Effient) 10 mg DAILY PO 09/19/17 09:00 09/19/17 09:15 (Prinivil) 2.5 mg DAILY PO 09/19/17 09:00 09/19/17 09:17 (Lipitor) 80 mg HS PO 09/19/17 21:00 Vital Signs / I&O Vital Signs Date Time Temp Pulse Resp B/P (MAP) Pulse Ox O2 Delivery O2 Flow Rate FiO2 09/19/17 13:12 57 09/19/17 12:40 61 09/19/17 11:02 98.5 56 15 140/79 (99) 98 09/19/17 11:00 56 09/19/17 10:00 56 09/19/17 09:00 54 09/19/17 08:00 54 09/19/17 07:51 98.6 57 15 132/75 (94) 96 09/19/17 07:47 95 21 09/19/17 07:12 52 09/19/17 06:12 57 09/19/17 05:13 60 09/19/17 04:00 60 09/19/17 03:00 98.7 58 18 131/83 (99) 98 09/19/17 03:00 54 09/19/17 02:15 50 09/19/17 01:00 58 09/19/17 00:00 54 09/18/17 23:27 97.9 56 18 124/80 (95) 99 09/18/17 23:00 60 09/18/17 22:00 62 09/18/17 21:00 58 09/18/17 20:20 18 09/18/17 20:00 56 09/18/17 19:47 98.1 55 18 142/79 (100) 97 09/18/17 19:00 60 09/18/17 15:15 99 Room Air I/O 09/18/17 09/18/17 09/18/17 09/19/17 09/19/17 09/19/17 07:00 15:00 23:00 07:00 15:00 23:00 Intake Total 960 ml Output Total 1025 ml Balance -65 ml Intake Oral 960 ml Output Urine Total 1025 ml # Voids 1 1 Physical Exam GENERAL: SKIN: Warm and dry. HEAD: Normocephalic. EYES: No scleral icterus. No injection or drainage. NECK: Supple, trachea midline. No JVD or lymphadenopathy. CARDIOVASCULAR: Regular rate and rhythm without murmurs, gallops, or rubs. RESPIRATORY: Breath sounds equal bilaterally. No accessory muscle use. GASTROINTESTINAL: Abdomen soft, non-tender, nondistended. MUSCULOSKELETAL: No cyanosis, or edema. BACK: Nontender without obvious deformity. No CVA tenderness. Laboratory Laboratory Tests Test 09/19/17 04:50 White Blood Count 7.8 TH/MM3 Red Blood Count 4.85 MIL/MM3 Hemoglobin 13.4 GM/DL Hematocrit 41.7 % Mean Corpuscular Volume 86.0 FL Mean Corpuscular Hemoglobin 27.6 PG Mean Corpuscular Hemoglobin Concent 32.1 % Red Cell Distribution Width 13.9 % Platelet Count 257 TH/MM3 Mean Platelet Volume 8.8 FL Neutrophils (%) (Auto) 69.4 % Lymphocytes (%) (Auto) 22.4 % Monocytes (%) (Auto) 6.4 % Eosinophils (%) (Auto) 1.3 % Basophils (%) (Auto) 0.5 % Neutrophils # (Auto) 5.4 TH/MM3 Lymphocytes # (Auto) 1.7 TH/MM3 Monocytes # (Auto) 0.5 TH/MM3 Eosinophils # (Auto) 0.1 TH/MM3 Basophils # (Auto) 0.0 TH/MM3 CBC Comment DIFF FINAL Differential Comment Blood Urea Nitrogen 11 MG/DL Creatinine 1.01 MG/DL Random Glucose 128 MG/DL Total Protein 6.3 GM/DL Albumin 3.0 GM/DL Calcium Level 8.0 MG/DL Alkaline Phosphatase 71 U/L Aspartate Amino Transf (AST/SGOT) 32 U/L Alanine Aminotransferase (ALT/SGPT) 43 U/L Total Bilirubin 0.4 MG/DL Direct Bilirubin 0.1 MG/DL Sodium Level 143 MEQ/L Potassium Level 3.5 MEQ/L Chloride Level 107 MEQ/L Carbon Dioxide Level 24.3 MEQ/L Anion Gap 12 MEQ/L Estimat Glomerular Filtration Rate 80 ML/MIN Indirect Bilirubin 0.3 MG/DL Total Creatine Kinase 161 U/L Triglycerides Level 168 MG/DL Cholesterol Level 232 MG/DL LDL Cholesterol 144 MG/DL HDL Cholesterol 54.5 MG/DL Cholesterol/HDL Ratio 4.25 RATIO Assessment and Plan Problem List: (1) CAD (coronary artery disease) ICD Codes: I25.10 - Atherosclerotic heart disease of [place] coronary artery without angina pectoris (2) Bradycardia ICD Codes: R00.1 - Bradycardia, unspecified (3) Non-ST elevated myocardial infarction ICD Codes: I21.4 - Non-ST elevation (NSTEMI) myocardial infarction Assessment and Plan 1.) CAD - assymptomatic s/p ptca om1 and bms prox lcx 09/18/17; ok to dc on aspirin 162 mg qd, plavix 75 mg qd, lipitor 80 mg hs; i explained to patient and his girlfriend that noncompliance with aspirin and plavix could cause a life threatening stent thrombosis and noncompliance with statin could lead to progressive cad; he understands and states he will be compliant; beta hector held due to bradycardia; f/u with me next week in office and patient to contact [facility] for enrollment Angel Kilgore MD September 19, 2017 14:05
--- NOTE | 2017-09-19 18:28 | EKG ---
Date Performed: 09/18/2017 Time Performed: 21:51:26 PTAGE: 47 years EKG: Sinus bradycardia Since PREVIOUS TRACING , no significant change noted Normal ECG except for rate PREVIOUS TRACIN 09/18/2017 05.58.12 DOCTOR: Danay Chandler Interpretating Date/Time 09/19/2017 18:27:52
--- NOTE | 2017-09-19 18:29 | EKG ---
Date Performed: 09/19/2017 Time Performed: 04:56:44 PTAGE: 47 years EKG: Sinus bradycardia Possible inferior infarct - age undetermined Since previous tracing, no s ignificant change noted Abnormal ECG PREVIOUS TRACING : 09/18/2017 21.51 DOCTOR: Danay Chandler Interpretating Date/Time 09/19/2017 18:28:22
[2017-09-19] MEDS ORDERED: ATORVASTATIN 80 MG TAB PO SCH (21:00)
== END 2017-09-19 15:30 | disposition home or self-care (01) | DRG 247 ==
LOC: PHED 23:03 → PHEDA 09-18 00:01 → PH3B 09-18 01:53 → OBSVTOIN 09-18 07:43 → HCIS 09-18 12:23
PROVIDERS: ADMIT Internal Medicine; ATTEND Internal Medicine
PROC: 4A023N7 Measurement of Cardiac Sampling and Pressure, Left Heart, Percutaneous Approach (ICD-10-PCS; 2017-09-18)
PROC: B2151ZZ Fluoroscopy of Left Heart using Low Osmolar Contrast (ICD-10-PCS; 2017-09-18)
PROC: B2111ZZ Fluoroscopy of Multiple Coronary Arteries using Low Osmolar Contrast (ICD-10-PCS; 2017-09-18)
PROC: 027034Z Dilation of Coronary Artery, One Artery with Drug-eluting Intraluminal Device, Percutaneous Approach (ICD-10-PCS; principal; 2017-09-18 12:45)
DX: I21.4 Non-ST elevation (NSTEMI) myocardial infarction (principal); E87.1 Hypo-osmolality and hyponatremia; I10 Essential (primary) hypertension; I25.10 Atherosclerotic heart disease of native coronary artery without angina pectoris; E78.5 Hyperlipidemia, unspecified; K21.9 Gastro-esophageal reflux disease without esophagitis; R00.1 Bradycardia, unspecified; E87.6 Hypokalemia; F12.90 Cannabis use, unspecified, uncomplicated; Z87.891 Personal history of nicotine dependence; Z79.899 Other long term (current) drug therapy
CPT/HCPCS: 71045; 80048; 80061; 80076; 82550; 82552; 84484; 85002; 85025; 85027; 85610; 85730; 92920; 92928; 93005; 93458; C1725; C1769; C1876; C1887; C1893; J1644; J2250; J3010; J3246; Q9967

== ENCOUNTER 2017-09-29 13:56 | Emergency (ER) | payer SELFPAY ==
[~2017-09-29] VITALS: Ht 188 cm; Wt 93.5 kg
[~2017-09-29 13:56] MED LIST changes: +ASPI81 PO; -ATOR40TA16 PO; +ATOR80TA45 PO; +LISI-519 PO; -LISI10TA3 PO; +METO25TA3 PO; +PLAV75TA29 PO; +ZANT150T2 PO
[2017-09-29 14:02] VITALS: BP 145/91; PULSE 67; RESP 16; TEMP 98; O2SAT 98
--- NOTE | 2017-09-29 14:58 | PD ---
HPI Chief Complaint: GI Complaint Time Seen by Provider: 14:36 Travel History International Travel<30 days: No Contact w/Intl Traveler<30days: No Traveled to known affect area: No History of Present Illness HPI Patient is a 47-year-old male with a history of recent coronary artery stenting and catheterization presents emergency department for elevated blood pressure meeting. He states his blood pressure at home was "105/150". Patient states his girlfriend wanted him to come in and be seen for this. He states he has been taking all of his medications as prescribed and therefore making him feel minimally nauseated but has no other complaints of pain. He states his been following up as prescribed as well. He states currently he feels well and by the time he got here his blood pressure is all better and actually would like to be discharged. Denies any chest pain shortness of breath abdominal pain vomiting diarrhea constipation. PFSH Past Medical History Hx Anticoagulant Therapy: No Autoimmune Disease: No Anxiety: Yes Depression: Yes Cancer: No Cardiovascular Problems: Yes (HTN) High Cholesterol: Yes Chest Pain: Yes Diminished Hearing: No Endocrine: No Gastrointestinal Disorders: Yes GERD: No Genitourinary: No Hiatal Hernia: No Hypertension: Yes Immune Disorder: No Implanted Vascular Access Dvce: No Musculoskeletal: No Neurologic: No Psychiatric: Yes Reproductive: No Respiratory: Yes Ulcer: No Tetanus Vaccination: > 5 Years Influenza Vaccination: No Past Surgical History Coronary Stent: Yes Tonsillectomy: Yes (WITH ADENOIDS) Other Surgery: No Social History Alcohol Use: Yes (6 every other day per patient ) Tobacco Use: No Substance Use: Yes (Marijuana) Allergies-Medications (Allergen,Severity, Reaction): Coded Allergies: No Known Allergies (Verified , 10/25/15) Reported Meds & Prescriptions Reported Meds & Active Scripts Active Zantac (Ranitidine HCl) 150 Mg Tab 150 Mg PO BID Plavix (Clopidogrel Bisulfate) 75 Mg Tab 75 Mg PO DAILY 90 Days Tgt Aspirin (Aspirin) 81 Mg Chw 162 Mg PO DAILY 30 Days Lisinopril 5 Mg Tab 2.5 Mg PO DAILY 30 Days Metoprolol Tartrate 25 Mg Tab 12.5 Mg PO Q12HR 30 Days Atorvastatin (Atorvastatin Calcium) 80 Mg Tab 80 Mg PO HS 30 Days Review of Systems Except as stated in HPI: all other systems reviewed are Neg Physical Exam Narrative GENERAL: Well-nourished, well-developed patient. Appears well in no obvious distress SKIN: Focused skin assessment warm/dry. HEAD: Normocephalic. EYES: No scleral icterus. No injection or drainage. NECK: Supple, trachea midline. No JVD or lymphadenopathy. CARDIOVASCULAR: Regular rate and rhythm without murmurs, gallops, or rubs. 2+ but equal pulses in all 4 extreme RESPIRATORY: Breath sounds equal bilaterally. No accessory muscle use. GASTROINTESTINAL: Abdomen soft, non-tender, nondistended. No rebound no percussive tenderness MUSCULOSKELETAL: No cyanosis, or edema. BACK: Nontender without obvious deformity. No CVA tenderness. Data Data Last Documented VS Vital Signs Date Time Temp Pulse Resp B/P (MAP) Pulse Ox O2 Delivery O2 Flow Rate FiO2 09/29/17 15:29 88 153/95 (114) 97 09/29/17 14:05 Room Air 09/29/17 14:02 98.0 16 Orders Orders Electrocardiogram (09/29/17 14:06) Ed Discharge Order (09/29/17 14:59) MDM Medical Decision Making Medical Screen Exam Complete: Yes Emergency Medical Condition: Yes Differential Diagnosis Elevated blood pressure reading, essential hypertension, restenosis seems unlikely, ACS unlikely, VT unlikely, hypertensive emergency highly unlikely Narrative Course Patient room to the emergency department, he appears well in obvious distress, opts for discharge at this time I do not think that any workup is warranted. Discussed follow-up with his primary care physician adherence to his previously prescribed medication regimen and return to ED criteria. Diagnosis Primary Impression: Elevated blood pressure reading Referrals: Angel Kilgore MD Patient Instructions: General Instructions, How to Take a Blood Pressure (DC), Hypertension (DC) Disposition: 01 DISCHARGE HOME Condition: Stable Adelso Ch MD Sep 29, 2017 14:58
[2017-09-29 15:29] VITALS: BP 153/95
--- NOTE | 2017-09-30 17:04 | EKG ---
Date Performed: 09/29/2017 Time Performed: 14:06:08 PTAGE: 47 years EKG: Sinus rhythm POSSIBLE RIGHT VENTRICULAR CONDUCTION DELAY BORDERLINE ECG Since the PREVIOUS TRACING , no significant change noted PREVIOUS TRACIN09/19/2017 04.56 DOCTOR: Milagros Masterson Interpretating Date/Time 09/30/2017 17:02:17
== END 2017-09-29 15:30 | disposition home or self-care (01) ==
LOC: PHED 13:56
DX: I10 Essential (primary) hypertension (principal); R94.31 Abnormal electrocardiogram [ECG] [EKG]; F41.9 Anxiety disorder, unspecified; F32.9 Major depressive disorder, single episode, unspecified; E78.00 Pure hypercholesterolemia, unspecified; F12.90 Cannabis use, unspecified, uncomplicated; Z95.5 Presence of coronary angioplasty implant and graft
CPT/HCPCS: 93005; 99283